=== PATIENT | female | born 1955 | race Caucasian/White ===

== ENCOUNTER 2017-05-06 17:31 | Emergency (ER) | payer SELFPAY ==
[~2017-05-06] VITALS: Ht 157.5 cm; Wt 65.3 kg
[~2017-05-06 17:31] MED LIST: AMIT50TA3 PO; LISI1TAB10 PO; MELO-195 PO; METO-351 PO; NAPR500T PO
--- OUTSIDE RECORDS SUMMARY | 2017-05-06 17:36 | XMS REPORT ---
Author Author AMMON SHELTON Organization [facility] Address [address] [place] [address] Care Team Providers Care Armored Cable Machine Operator Name Role Phone AMMON SHELTON Unavailable PROBLEMS Type Condition ICD9-CM Code [id number] Code Onset Dates Condition Status SNOMED Code Problem Dyspareunia N94.1 Active 03899394 Problem Impetigo L01.00 Active 36683631 Problem Renal failure, unspecified N19 Active 04630317 Problem Sinus arrhythmia I49.8 Active 83162488 Problem Pain in joint, pelvic region and thigh M25.559 Active 839293390 Problem Chronic hepatitis C without hepatic coma B18.2 Active 378232199 Problem 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 Active 039548742 Problem Episodic mood disorder F39 Active 80773717 Problem Primary osteoarthritis of left knee M17.12 Active 334449765 Problem GERD (gastroesophageal reflux disease) K21.9 Active 436868356 Problem Hyposmolality E87.1 Active 829375429 Problem Family history of cardiovascular disease Z82.49 Active 595784275 Problem Generalized osteoarthritis M15.9 Active 511936947 Problem Counseling on substance use and abuse Z71.89 Active 453751274 Problem Decreased libido R68.82 Active 4244064 Problem Syncope and collapse R55 Active 983312766 Problem Essential hypertension, benign I10 Active 6975694 Problem Other malaise R53.81 Active 090089529 Problem Lumbago M54.5 Active 798048908 Problem Postmenopausal atrophic vaginitis N95.2 Active 87048820 ALLERGIES No Information SOCIAL HISTORY Never Assessed PLAN OF CARE VITAL SIGNS MEDICATIONS No Known Medications RESULTS No Results PROCEDURES No Known procedures IMMUNIZATIONS No Known Immunizations MEDICAL (GENERAL) HISTORY Type Description Date Medical History Hepatitis C Medical History Hypertension Medical History Renal failure acute Medical History Insomnia Surgical History partial hysterectomy 1991 Surgical History b union_ left foot unknown Surgical History colposcopy 1990 Hospitalization History surgery Hospitalization History childbirth x 3
--- OUTSIDE RECORDS SUMMARY | 2017-05-06 17:36 | XMS REPORT ---
Author Author APOLLO ANNA Organization [facility] Address [address] [place] [address] Care Team Providers Care Housecleaner Floor Name Role Phone ANNA BUSTILLOS Unavailable PROBLEMS Type Condition ICD9-CM Code IJF69-ML Code Onset Dates Condition Status SNOMED Code Problem Renal failure, unspecified N19 Active 00011932 Problem Generalized osteoarthritis M15.9 Active 165885197 Problem Family history of cardiovascular disease Z82.49 Active 160844701 Problem Sinus arrhythmia I49.8 Active 39137227 Problem Pain in joint, pelvic region and thigh M25.559 Active 425789090 Problem Chronic hepatitis C without hepatic coma B18.2 Active 051026476 Problem 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 Active 929030579 Problem Essential hypertension, benign I10 Active 6581274 Problem Primary osteoarthritis of left knee M17.12 Active 464333557 Problem GERD (gastroesophageal reflux disease) K21.9 Active 808633830 Problem Counseling on substance use and abuse Z71.89 Active 855472709 Problem Decreased libido R68.82 Active 3926369 Problem Hyposmolality E87.1 Active 650496220 Problem Postmenopausal atrophic vaginitis N95.2 Active 85416616 Problem Episodic mood disorder F39 Active 43110987 Problem Impetigo L01.00 Active 60973110 Problem Dyspareunia N94.1 Active 38305889 Problem Other malaise R53.81 Active 605907933 Problem Lumbago M54.5 Active 828162564 Problem Syncope and collapse R55 Active 384004488 ALLERGIES No Known Allergies SOCIAL HISTORY No smoking Hx information available PLAN OF CARE VITAL SIGNS MEDICATIONS Medication Instructions Dosage Frequency Start Date End Date Duration Status Amitriptyline HCl 50 mg Orally Once a day 1 tablet 24h 30 days Active RESULTS No Results PROCEDURES No Known procedures IMMUNIZATIONS No Known Immunizations
--- OUTSIDE RECORDS SUMMARY | 2017-05-06 17:36 | XMS REPORT ---
Author Author APOLLO ANNA Organization [facility] Address [address] [place] [address] Care Team Providers Care Bottle Cleaner Name Role Phone ANNA BUSTILLOS Unavailable PROBLEMS Type Condition ICD9-CM Code [id number] Code Onset Dates Condition Status SNOMED Code Problem Dyspareunia N94.1 Active 65056517 Problem Impetigo L01.00 Active 67821746 Problem Renal failure, unspecified N19 Active 79774341 Problem Sinus arrhythmia I49.8 Active 97312033 Problem Pain in joint, pelvic region and thigh M25.559 Active 051414822 Problem Chronic hepatitis C without hepatic coma B18.2 Active 722461190 Problem 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 Active 682620837 Problem Episodic mood disorder F39 Active 43673973 Problem Primary osteoarthritis of left knee M17.12 Active 736528671 Problem GERD (gastroesophageal reflux disease) K21.9 Active 654426689 Problem Hyposmolality E87.1 Active 074338505 Problem Family history of cardiovascular disease Z82.49 Active 174988886 Problem Generalized osteoarthritis M15.9 Active 173336754 Problem Counseling on substance use and abuse Z71.89 Active 155104519 Problem Decreased libido R68.82 Active 3848966 Problem Syncope and collapse R55 Active 402018596 Problem Essential hypertension, benign I10 Active 9844568 Problem Other malaise R53.81 Active 466087052 Problem Lumbago M54.5 Active 014754708 Problem Postmenopausal atrophic vaginitis N95.2 Active 82001110 ALLERGIES Substance Reaction Event Type Date Status Mobic Hypertension Drug Allergy May, Active Cipro Unknown Drug Allergy May, Active Azithromycin Unknown Drug Allergy May, Active Avelox Unknown Drug Allergy May, Active Meloxicam 15 Mg Tablet HTN, Hyponatremia Non Drug Allergy May, Active SOCIAL HISTORY No smoking Hx information available PLAN OF CARE Activity Details Follow Up 4 Weeks, prn Reason:htn VITAL SIGNS Height 62 in 2016-06-08 Weight 146.9 lbs 2016-06-08 Temperature 98.4 degrees Fahrenheit 2016-06-08 Heart Rate 80 bpm 2016-06-08 Respiratory Rate 16 2016-06-08 BMI 26.87 kg/m2 2016-06-08 Blood pressure systolic 140 mmHg 2016-06-08 Blood pressure diastolic 90 mmHg 2016-06-08 MEDICATIONS Medication Instructions Dosage Frequency Start Date End Date Duration Status Amitriptyline HCl 50 mg Orally Once a day 1 tablet 24h 30 days Active Naprosyn 500 MG Orally every 12 hrs 1 tablet as needed 12h 30 May, 2016 Active Omeprazole 20 MG take 1 capsule 24h 27 Jun, 2014 Active Lisinopril-Hydrochlorothiazide 20-25 MG Orally Once a day 1 tablet 24h Active Toprol XL 25 MG 1 tablet 24h Active RESULTS No Results PROCEDURES Procedure Date Ordered Related Diagnosis Body Site Office Visit, Est Pt., Level 3 Jun 08, 2016 IMMUNIZATIONS No Known Immunizations
--- OUTSIDE RECORDS SUMMARY | 2017-05-06 17:37 | XMS REPORT ---
Author Author APOLLO ANNA Organization [facility] Address [address] [place] [address] Care Team Providers Care Insurance Billing Clerk Name Role Phone MARIAELENA BUSTILLOSNETTE Unavailable PROBLEMS Type Condition ICD9-CM Code [id number] Code Onset Dates Condition Status SNOMED Code Problem Dyspareunia N94.1 Active 86909675 Problem Impetigo L01.00 Active 60791129 Problem Renal failure, unspecified N19 Active 42004812 Problem Sinus arrhythmia I49.8 Active 59196117 Problem Pain in joint, pelvic region and thigh M25.559 Active 011543250 Problem Chronic hepatitis C without hepatic coma B18.2 Active 968703205 Problem 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 Active 469681654 Problem Episodic mood disorder F39 Active 81030047 Problem Primary osteoarthritis of left knee M17.12 Active 221948406 Problem GERD (gastroesophageal reflux disease) K21.9 Active 377090434 Problem Hyposmolality E87.1 Active 827985701 Problem Family history of cardiovascular disease Z82.49 Active 138093167 Problem Generalized osteoarthritis M15.9 Active 488400172 Problem Counseling on substance use and abuse Z71.89 Active 977390748 Problem Decreased libido R68.82 Active 6271764 Problem Syncope and collapse R55 Active 070468679 Problem Essential hypertension, benign I10 Active 8673212 Problem Other malaise R53.81 Active 836572839 Problem Lumbago M54.5 Active 595067519 Problem Postmenopausal atrophic vaginitis N95.2 Active 59533002 ALLERGIES No Information SOCIAL HISTORY Never Assessed PLAN OF CARE VITAL SIGNS MEDICATIONS Medication Instructions Dosage Frequency Start Date End Date Duration Status Amitriptyline HCl 50 MG Orally Once a day 1 tablet 24h 90 days Active Toprol XL 25 MG Orally Once a day 1 tablet 24h 90 days Active RESULTS No Results PROCEDURES No [...]
--- OUTSIDE RECORDS SUMMARY | 2017-05-06 17:37 | XMS REPORT ---
Author Author APOLLO ANNA Organization [facility] Address [address] [place] [address] Care Team Providers Care Cloud Physicist Name Role Phone ALICIA BUSTILLOSE Unavailable PROBLEMS Type Condition ICD9-CM Code [id number] Code Onset Dates Condition Status SNOMED Code Problem Dyspareunia N94.1 Active 99251975 Problem Impetigo L01.00 Active 80350834 Problem Renal failure, unspecified N19 Active 90997274 Problem Sinus arrhythmia I49.8 Active 54197535 Problem Pain in joint, pelvic region and thigh M25.559 Active 968192085 Problem Chronic hepatitis C without hepatic coma B18.2 Active 701386940 Problem 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 Active 857768800 Problem Episodic mood disorder F39 Active 73447515 Problem Primary osteoarthritis of left knee M17.12 Active 451881220 Problem GERD (gastroesophageal reflux disease) K21.9 Active 594956489 Problem Hyposmolality E87.1 Active 441282552 Problem Family history of cardiovascular disease Z82.49 Active 971775415 Problem Generalized osteoarthritis M15.9 Active 582075932 Problem Counseling on substance use and abuse Z71.89 Active 181949452 Problem Decreased libido R68.82 Active 9523123 Problem Syncope and collapse R55 Active 476398917 Problem Essential hypertension, benign I10 Active 6418655 Problem Other malaise R53.81 Active 345253419 Problem Lumbago M54.5 Active 448903608 Problem Postmenopausal atrophic vaginitis N95.2 Active 50087344 ALLERGIES Substance Reaction Event Type Date Status Mobic Hypertension Drug Allergy Aug, Active Cipro Unknown Drug Allergy Aug, Active Azithromycin Unknown Drug Allergy Aug, Active Avelox Unknown Drug Allergy Aug, Active Meloxicam 15 Mg Tablet HTN, Hyponatremia Non Drug Allergy Aug, Active SOCIAL HISTORY Never Assessed PLAN OF CARE Activity Details Follow Up 2 Weeks Reason:uti VITAL SIGNS Height 62 in 2016-08-15 Weight 153 lbs 2016-08-15 Temperature 97.9 degrees Fahrenheit 2016-08-15 Heart Rate 88 bpm 2016-08-15 Respiratory Rate 18 2016-08-15 BMI 27.98 kg/m2 2016-08-15 Blood pressure systolic 150 mmHg 2016-08-15 Blood pressure diastolic 80 mmHg 2016-08-15 MEDICATIONS Medication Instructions Dosage Frequency Start Date End Date Duration Status Omeprazole 20 MG take 1 capsule 24h Jun, Active Macrobid 100 mg Orally every 12 hrs 1 capsule with food 12h Aug, Aug, 10 days Active Lisinopril-Hydrochlorothiazide 20-25 MG Orally Once a day 1 tablet 24h Active Amitriptyline HCl 50 mg Orally Once a day 1 tablet 24h 30 days Active Toprol XL 25 MG 1 tablet 24h Active RESULTS Name Result Date Reference Range UA LONG DIP (IN HOUSE) Lot # [id number] Exp date 07/10/2017 Clarity clear Color yellow Odor none GLU negative LUÍS negative KET negative SG 1.010 BLO negative pH 6.5 Protein negative URO 0.2 NIT positive LEONA negative Lot # Exp date PROCEDURES Procedure Date Ordered Result Body Site URINALYSIS, AUTO, W/O SCOPE August 15, 2016 IMMUNIZATIONS No Known Immunizations MEDICAL (GENERAL) HISTORY Type Description Date Medical History Hepatitis C Medical History Hypertension Medical History Renal failure acute Medical History Insomnia Surgical History partial hysterectomy 1991 Surgical History b union_ left foot unknown Surgical History colposcopy 1990 Hospitalization History surgery Hospitalization History childbirth x 3
--- OUTSIDE RECORDS SUMMARY | 2017-05-06 17:37 | XMS REPORT ---
Author Author AMMON SHELTON Organization [facility] Address [address] [place] [address] Care Team Providers Care Roto Gravure Press Operator Name Role Phone AMMON SHELTON Unavailable PROBLEMS Type Condition ICD9-CM Code CYQ63-[id number] Code Onset Dates Condition Status SNOMED Code Problem Dyspareunia N94.1 Active 04099838 Problem Impetigo L01.00 Active 62041655 Problem Renal failure, unspecified N19 Active 76083410 Problem Sinus arrhythmia I49.8 Active 14054598 Problem Pain in joint, pelvic region and thigh M25.559 Active 757027858 Problem Chronic hepatitis C without hepatic coma B18.2 Active 510920208 Problem 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 Active 527916643 Problem Episodic mood disorder F39 Active 29410759 Problem Primary osteoarthritis of left knee M17.12 Active 932146408 Problem GERD (gastroesophageal reflux disease) K21.9 Active 623932006 Problem Hyposmolality E87.1 Active 961085124 Problem Family history of cardiovascular disease Z82.49 Active 142848908 Problem Generalized osteoarthritis M15.9 Active 558313155 Problem Counseling on substance use and abuse Z71.89 Active 350733133 Problem Decreased libido R68.82 Active 9176514 Problem Syncope and collapse R55 Active 879478122 Problem Essential hypertension, benign I10 Active 2930397 Problem Other malaise R53.81 Active 951525296 Problem Lumbago M54.5 Active 814697978 Problem Postmenopausal atrophic vaginitis N95.2 Active 52811314 ALLERGIES No Information SOCIAL HISTORY Never Assessed [...]
--- OUTSIDE RECORDS SUMMARY | 2017-05-06 17:37 | XMS REPORT ---
Author Author LICHA CORTEZ Organization [employer] Address Unknown Phone Unavailable Care Team Providers Care Coin Dealer Name Role Phone LICHA CORTEZ CP Unavailable Allergies No Known Allergies Problems Problem Type Condition ICD-9 Code Onset Dates Condition Status Problem Acute upper respiratory infections of unspecified site 465.9 Active Problem Pain in joint, pelvic region and thigh 719.45 Active Problem Acute gastritis without mention of hemorrhage 535.00 Active Problem Hyposmolality and/or hyponatremia 276.1 Active Problem Unspecified breast screening V76.10 Active Problem Postmenopausal atrophic vaginitis 627.3 Active Problem Counseling on substance use and abuse V65.42 Active Problem Unspecified renal failure 586 Active Problem Special screening for malignant neoplasms, colon V76.51 Active Problem Dehydration 276.51 Active Problem Decreased libido 799.81 Active Problem Family history of other cardiovascular diseases V17.49 Active Problem Insomnia, unspecified 780.52 Active Problem Generalized osteoarthrosis, unspecified site 715.00 Active Problem Persistent disorder of initiating or maintaining sleep 307.42 Active Problem Chronic hepatitis C without mention of hepatic coma 070.54 Active Problem Dyspareunia 625.0 Active Problem Routine gynecological examination V72.31 Active Problem Diarrhea 787.91 Active Problem Special screening for malignant neoplasms, vagina V76.47 Active Problem Essential hypertension, benign 401.1 Active Problem Encounter for long-term (current) use of other medications V58.69 Active Problem STATE HEP A (ADULT) DX V05.3 Active Problem Acute sinusitis, unspecified 461.9 Active Problem Lumbago 724.2 Active Problem Unspecified episodic mood disorder 296.90 Active Problem Urinary tract infection, site not specified 599.0 Active Problem Need for prophylactic vaccination and inoculation, Influenza V04.81 Active Problem Other malaise and fatigue 780.79 Active Problem Syncope and collapse 780.2 Active Problem Impetigo 684 Active Problem Unspecified viral hepatitis C without hepatic coma 070.70 Active Medications No Known Medications Results No Known Results Summary Purpose [employer] Submission
--- OUTSIDE RECORDS SUMMARY | 2017-05-06 17:37 | XMS REPORT ---
Author AMMON Laboy Organization [employer] Address Unknown Phone Unavailable Care Team Providers Care Banking Representative Name Role Phone AMMON DIAZ CP Unavailable Allergies, Adverse Reactions, Alerts Substance Reaction Event Type Mobic Hypertension Drug Allergy Cipro Info Not Available Drug Allergy Azithromycin Info Not Available Drug Allergy Avelox Info Not Available Drug Allergy Meloxicam 15 Mg Tablet HTN, Hyponatremia Non Drug Allergy Problems Problem Type Condition Code Onset Dates Condition Status Assessment Chronic hepatitis C without hepatic coma B18.2 Active Assessment Encounter for immunization Z23 Active Problem Acute upper respiratory infections of unspecified [...] C without hepatic coma 070.70 Active Medications Medication Code System Code Instructions Start Date End Date Status Dosage Hillary [facility] [address]-98 90-400 MG Orally Once a day May 11, 2015Jun 1 tablet Toprol XL [facility] 02311963244 25 MG TAKE ONE TABLET BY MOUTH IN THE EVENING Lisinopril-Hydrochlorothiazide [facility] [address]-26 20-25 MG Orally Once a day 1 tablet amitriptyline [facility] [address]-73 50 mg Jul 22, 2014 1 tablet by Oral route 1 time per day Omeprazole [facility] [address]-04 20 mg Jul 06, 2014 take 1 capsule by Oral route before a meal every other day Amitriptyline HCl [facility] 88225156833 50 MG TAKE ONE TABLET BY MOUTH DAILY Procedures Procedure Coding System Code Date COMPREHEN METABOLIC PANEL CPT-4 55710 May 11, 2015 PROTHROMBIN TIME CPT-4 95404 May 11, 2015 MANUAL CELL COUNT, EACH CPT-4 93149 May 11, 2015 VENIPUNCT, ROUTINE* CPT-4 06491 May 11, 2015 IMMUNIZATION ADMIN, EACH ADD (please include units) CPT-4 04373 May 11, 2015 HEP B (ADULT) CPT-4 26995 May 11, 2015 Office Visit, Est Pt., Level 4 CPT-4 23454 May 11, 2015 SINGLE IMMUNIZATION ADMIN CPT-4 78375 May 11, 2015 HEP A (ADULT) CPT-4 33183 May 11, 2015 Vital Signs Date/Time: May 11, 2015 Temperature 98.2 F Weight 146.0 lbs Height 62 in BMI 26.70 Index Blood Pressure Diastolic 80 mmHg Blood Pressure Systolic 120 mmHg Cardiac Monitoring Heart Rate 80 bpm Results Name Result Date Reference Range Unit Abnormality Flag CMP ----Calcium, Serum 9.1 20150511 8.7-10.2 mg/dL ----Carbon Dioxide, Total 26 20150511 18-29 mmol/L ----ALT (SGPT) 18 20150511 0-32 IU/L ----Creatinine, Serum 1.08 20150511 0.57-1.00 mg/dL H ----AST (SGOT) 28 20150511 0-40 IU/L ----eGFR If NonAfricn Am 57 00297698 >59 mL/min/1.73 L ----Alkaline Phosphatase, S 84 64560597 39-117 IU/L ----eGFR If Africn Am 65 42953749 >59 mL/min/1.73 ----Bilirubin, Total 0.2 93831428 0.0-1.2 mg/dL ----BUN/Creatinine Ratio 12 20150511 9-23 ----A/G Ratio 1.5 20150511 1.1-2.5 ----Sodium, Serum 129 69106299 134-144 mmol/L L ----Globulin, Total 2.9 79829862 1.5-4.5 g/dL ----Potassium, Serum 4.4 36578583 3.5-5.2 mmol/L ----Glucose, Serum 88 20150511 65-99 mg/dL ----Chloride, Serum 90 14562831 97-108 mmol/L L ----Albumin, Serum 4.3 43913293 3.5-5.5 g/dL ----BUN 13 20150511 6-24 mg/dL ----Protein, Total, Serum 7.2 39080228 6.0-8.5 g/dL CBC w/ MANUAL DIFF ----Basos 0 65340792 % ----MCV 88 12283696 79-97 fL ----Hematocrit 38.8 65979947 34.0-46.6 % ----Eos 1 39327450 % ----MCHC 34.5 07950830 31.5-35.7 g/dL ----Monocytes 3 23647692 % ----MCH 30.2 84148875 26.6-33.0 pg ----Lymphs 29 22374035 % ----Eos (Absolute Value) 0.1 79157659 0.0-0.4 X10E3/uL ----WBC 7.9 77989008 3.4-10.8 x10E3/uL ----Monocytes(Absolute) 0.2 61993616 0.1-0.9 X10E3/uL ----Lymphs (Absolute) 2.3 20150511 0.7-3.1 X10E3/uL ----Hemoglobin 13.4 24100006 11.1-15.9 g/dL ----Neutrophils Absolute 5.3 34909413 1.4-7.0 X10E3/uL ----RBC 4.43 61134395 3.77-5.28 x10E6/uL ----Platelet Comment Note: 20150511 Adequate ----RBC Comment Note: 20150511 Normal ----Neutrophils 67 01993228 % ----Baso(Absolute) 0.0 95818941 0.0-0.2 X10E3/uL ----RDW 13.2 32440638 12.3-15.4 % ----Platelets 348 91883598 150-379 x10E3/uL ROUTINE VENIPUNCTURE INR (IN HOUSE) ----Exp date 20150511 ----NEW COUMADIN DOSE none 20150511 ----Lot # [id number] ----PREVIOUS INR none 20150511 ----CURRENT COUMADIN DOSE none 20150511 ----INR 1.0 20150511 1.10 - 3.30 Immunizations Vaccine Administration Date HEP B (ADULT) May 11, 2015 HEP A (ADULT) May 11, 2015 Summary Purpose [employer] Submission
--- OUTSIDE RECORDS SUMMARY | 2017-05-06 17:37 | XMS REPORT ---
Author Author ALEC MCDONALD [facility] Address [address] [place] [address] Care Team Providers Care Power Saw Operator Name Role Phone ALEC MCDONALD Unavailable PROBLEMS Type Condition ICD9-CM Code YIL31-FD Code Onset Dates Condition Status SNOMED Code Problem Dyspareunia N94.1 Active 89436733 Problem Impetigo L01.00 Active 09012640 Problem Renal failure, unspecified N19 Active 04906150 Problem Sinus arrhythmia I49.8 Active 07596131 Problem Pain in joint, pelvic region and thigh M25.559 Active 530772895 Problem Chronic hepatitis C without hepatic coma B18.2 Active 305532240 Problem 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 Active 328160701 Problem Episodic mood disorder F39 Active 48915114 Problem Primary osteoarthritis of left knee M17.12 Active 878987915 Problem GERD (gastroesophageal reflux disease) K21.9 Active 619377506 Problem Hyposmolality E87.1 Active 239674695 Problem Family history of cardiovascular disease Z82.49 Active 967727076 Problem Generalized osteoarthritis M15.9 Active 730961314 Problem Counseling on substance use and abuse Z71.89 Active 730620097 Problem Decreased libido R68.82 Active 0083831 Problem Syncope and collapse R55 Active 125224250 Problem Essential hypertension, benign I10 Active 9948632 Problem Other malaise R53.81 Active 842664587 Problem Lumbago M54.5 Active 357462570 Problem Postmenopausal atrophic vaginitis N95.2 Active 41064722 ALLERGIES No Information SOCIAL HISTORY Never Assessed PLAN OF CARE VITAL SIGNS MEDICATIONS Medication Instructions Dosage Frequency Start Date End Date Duration Status Lisinopril-Hydrochlorothiazide 20-25 MG Orally Once a day, voucher 1st fill 1 tablet Active RESULTS No Results PROCEDURES No Known [...]
--- OUTSIDE RECORDS SUMMARY | 2017-05-06 17:37 | XMS REPORT ---
Author Author APOLLO ANNA Organization [facility] Address [address] [place] [address] Care Team Providers Care Onsite Health Coach Name Role Phone ALICIA BUSTILLOSE Unavailable PROBLEMS Type Condition ICD9-CM Code LXY48-LP Code Onset Dates Condition Status SNOMED Code Problem Dyspareunia N94.1 Active 22093871 Problem Impetigo L01.00 Active 50735775 Problem Renal failure, unspecified N19 Active 59833293 Problem Sinus arrhythmia I49.8 Active 34200952 Problem Pain in joint, pelvic region and thigh M25.559 Active 982805373 Problem Chronic hepatitis C without hepatic coma B18.2 Active 974950116 Problem 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 Active 837905870 Problem Episodic mood disorder F39 Active 84989119 Problem Primary osteoarthritis of left knee M17.12 Active 882980489 Problem GERD (gastroesophageal reflux disease) K21.9 Active 583041463 Problem Hyposmolality E87.1 Active 988662319 Problem Family history of cardiovascular disease Z82.49 Active 276113885 Problem Generalized osteoarthritis M15.9 Active 884659707 Problem Counseling on substance use and abuse Z71.89 Active 775507445 Problem Decreased libido R68.82 Active 2031852 Problem Syncope and collapse R55 Active 592721666 Problem Essential hypertension, benign I10 Active 1354272 Problem Other malaise R53.81 Active 309040369 Problem Lumbago M54.5 Active 524398425 Problem Postmenopausal atrophic vaginitis N95.2 Active 50964396 ALLERGIES No Information SOCIAL HISTORY Never Assessed PLAN OF CARE VITAL SIGNS MEDICATIONS No Known Medications RESULTS No Results PROCEDURES Procedure Date Ordered Result Body Site HEP C RNA QUANT ([facility]IANCE ONLY) Aug 07, 2016 VENIPUNCT, ROUTINE* Aug 07, 2016 IMMUNIZATIONS No Known Immunizations MEDICAL (GENERAL) HISTORY Type Description Date Medical History Hepatitis C Medical History Hypertension Medical History Renal failure acute Medical History Insomnia Surgical History partial hysterectomy 1992 Surgical History b union_ left foot unknown Surgical History colposcopy 1991 Hospitalization History surgery Hospitalization History childbirth x 3
--- OUTSIDE RECORDS SUMMARY | 2017-05-06 17:37 | XMS REPORT ---
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 Active 937523348 Problem Episodic mood disorder F39 Active 71808642 Problem Primary osteoarthritis of left knee M17.12 Active 198567710 Problem GERD (gastroesophageal reflux disease) K21.9 Active 230249105 Problem Hyposmolality E87.1 Active 509607470 Problem Family history of cardiovascular disease Z82.49 Active 320025633 Problem Generalized osteoarthritis M15.9 Active 350016372 Problem Counseling on substance use and abuse Z71.89 Active 557875678 Problem Decreased libido R68.82 Active 2251093 Problem Syncope and collapse R55 Active 858470280 Problem Essential hypertension, benign I10 Active 6578741 Problem Other malaise R53.81 Active 817455051 Problem Lumbago M54.5 Active 408411425 Problem Postmenopausal atrophic vaginitis N95.2 Active 98875475 ALLERGIES Substance Reaction Event Type Date Status Mobic Hypertension Drug Allergy October, Active Cipro Unknown Drug Allergy October, Active Azithromycin Unknown Drug Allergy October, Active Avelox Unknown Drug Allergy October, Active Meloxicam 15 Mg Tablet HTN, Hyponatremia Non Drug Allergy October, Active SOCIAL HISTORY Never Assessed PLAN OF CARE Activity Details Follow Up 8 weeks Reason: Pending Test HEP C RNA QUANT ([facility] ONLY) VITAL SIGNS Height 62 in 2016-11-07 Weight 146.1 lbs 2016-11-07 Temperature 97.9 degrees Fahrenheit 2016-11-07 Heart Rate 86 bpm 2016-11-07 Respiratory Rate 18 2016-11-07 BMI 26.72 kg/m2 2016-11-07 Blood pressure systolic 118 mmHg 2016-11-07 Blood pressure diastolic 76 mmHg 2016-11-07 MEDICATIONS Medication Instructions Dosage Frequency Start Date End Date Duration Status Amitriptyline HCl 50 mg Orally Once a day 1 tablet 24h 30 Active Omeprazole 20 MG take 1 capsule 24h Jun, Active Toprol XL 25 MG 1 tablet 24h Active Lisinopril-Hydrochlorothiazide 20-25 MG Orally Once a day, voucher 1st fill 1 tablet Active RESULTS Name Result Date Reference Range CBC 2016-11-07 WBC 7.6 3.4-10.8 RBC 3.99 3.77-5.28 Hemoglobin 12.3 11.1-15.9 Hematocrit 36.5 34.0-46.6 MCV 92 79-97 MCH 30.8 26.6-33.0 MCHC 33.7 31.5-35.7 RDW 12.7 12.3-15.4 Platelets 320 150-379 Neutrophils 57 Lymphs 30 Monocytes 9 Eos 3 Basos 1 Immature Cells Neutrophils (Absolute) 4.3 1.4-7.0 Lymphs (Absolute) 2.3 0.7-3.1 Monocytes(Absolute) 0.7 0.1-0.9 Eos (Absolute) 0.2 0.0-0.4 Baso (Absolute) 0.1 0.0-0.2 Immature Granulocytes 0 Immature Grans (Abs) 0.0 0.0-0.1 NR Hematology Comments: CMP 2016-11-07 Glucose, Serum 79 65-99 BUN 13 6-24 Creatinine, Serum 0.87 0.57-1.00 eGFR If NonAfricn Am 73 >59 eGFR If Africn Am 84 >59 BUN/Creatinine Ratio 15 9-23 Sodium, Serum 135 134-144 Potassium, Serum 4.5 3.5-5.2 Chloride, Serum 97 96-106 Carbon Dioxide, Total 23 18-29 Calcium, Serum 9.3 8.7-10.2 Protein, Total, Serum 7.5 6.0-8.5 Albumin, Serum 4.3 3.5-5.5 Globulin, Total 3.2 1.5-4.5 A/G Ratio 1.3 1.2-2.2 Bilirubin, Total 0.2 0.0-1.2 Alkaline Phosphatase, S 61 39-117 AST (SGOT) 15 0-40 ALT (SGPT) 14 0-32 PROCEDURES Procedure Date Ordered Result Body Site EKG, TRACING (IN-HOUSE) 2016-11-07 Sinus arrhythmia COMPLETE CBC W/AUTO DIFF WBC November 07, 2016 HEP C RNA QUANT ([facility] ONLY) November 07, 2016 COMPREHEN METABOLIC PANEL November 07, 2016 ELECTROCARDIOGRAM, TRACING November 07, 2016 VENIPUNCT, ROUTINE* November 07, 2016 IMMUNIZATIONS No Known Immunizations MEDICAL (GENERAL) HISTORY Type Description Date Medical History Hepatitis C Medical History Hypertension Medical History Renal failure acute Medical History Insomnia Surgical History partial hysterectomy 1991 Surgical History b union_ left foot unknown Surgical History colposcopy 1990 Hospitalization History surgery Hospitalization History childbirth x 3
--- OUTSIDE RECORDS SUMMARY | 2017-05-06 17:37 | XMS REPORT ---
Author Author LICHA CORTEZ Organization [employer] Address Unknown Phone Unavailable Care Team Providers Care Whipped Topping Mixer Name Role Phone LICHA CORTEZ CP Unavailable Allergies No Known Allergies Problems Problem Type Condition Code Onset Dates Condition Status Problem Acute [...]
--- OUTSIDE RECORDS SUMMARY | 2017-05-06 17:38 | XMS REPORT ---
Author ALEC Zayas [facility] [employer] Address Unknown Phone Unavailable Care Team Providers Care Bulk Truck Driver Name Role Phone ALEC MCDONALD CP Unavailable Allergies, Adverse Reactions, Alerts Substance Reaction Event Type Mobic Hypertension Drug Allergy Cipro Info Not Available Drug Allergy Azithromycin Info Not Available Drug Allergy Avelox Info Not Available Drug Allergy Meloxicam 15 Mg Tablet HTN, Hyponatremia Non Drug Allergy Problems Problem Type Condition Code Onset Dates Condition Status Assessment Allergic rhinitis, unspecified allergic rhinitis type J30.9 Active Problem Acute upper respiratory infections of [...] Instructions Start Date End Date Status Dosage Xyzal [facility] [address]-99 5 MG Once a day Jul 10, 2014 1 tablet Omeprazole [facility] [address]-01 20 MG Once a day Jul 06, 2014 take 1 capsule Lisinopril-Hydrochlorothiazide [facility] [address]-17 20-25 MG Orally Once a day 1 tablet Amitriptyline HCl [facility] [address]-24 50 MG Once a day 1 tablet Toprol XL [facility] [address]-81 25 MG Once a day 1 tablet Procedures Procedure Coding System Code Date Office Visit, Est Pt., Level 3 CPT-4 34321 May 25, 2015 Vital Signs Date/Time: May 25, 2015 Temperature 98.7 F Weight 144.7 lbs Height 62 in BMI 26.46 Index Blood Pressure Diastolic 80 mmHg Blood Pressure Systolic 130 mmHg Cardiac Monitoring Heart Rate 82 bpm Results No Known Results Summary Purpose [employer] Submission
--- OUTSIDE RECORDS SUMMARY | 2017-05-06 17:38 | XMS REPORT ---
Author ANNA Boogie [facility] [employer] Address Unknown Phone Unavailable Care Team Providers Care Case Management Coordinator Name Role Phone ANNA BUSTILLOS CP Unavailable Allergies, Adverse Reactions, Alerts Substance Reaction Event Type Mobic Hypertension Drug Allergy Cipro Info Not Available Drug Allergy Azithromycin Info Not Available Drug Allergy Avelox Info Not Available Drug Allergy Meloxicam 15 Mg Tablet HTN, Hyponatremia Non Drug Allergy Problems Problem Type Condition Code Onset Dates Condition Status Problem Impetigo L01.00 Active Problem Syncope and collapse R55 Active Problem Other malaise R53.81 Active Problem 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 Active Assessment Essential hypertension, benign I10 Active Problem Chronic hepatitis C B18.2 Active Assessment GERD (gastroesophageal reflux disease) K21.9 Active Problem GERD (gastroesophageal reflux disease) K21.9 Active Problem Family history of cardiovascular disease Z82.49 Active Problem Renal failure, unspecified N19 Active Problem Essential hypertension, benign I10 Active Problem Generalized osteoarthritis M15.9 Active Problem Pain in joint, pelvic region and thigh M25.559 Active Problem Hyposmolality E87.1 Active Assessment 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 Active Assessment Ear congestion H93.8X9 Active Problem Decreased libido R68.82 Active Problem Dyspareunia N94.1 Active Problem Postmenopausal atrophic vaginitis N95.2 Active Problem Lumbago M54.5 Active Problem Counseling on substance use and abuse Z71.89 Active Problem Episodic mood disorder F39 Active Medications Medication Code System Code Instructions Start Date End Date Status Dosage Amitriptyline HCl [facility] [address]-00 50 MG Once a day 1 tablet Omeprazole [facility] [address]-59 20 MG Once a day Jul 06, 2014 take 1 capsule Lisinopril-Hydrochlorothiazide [facility] [address]-61 20-25 MG Orally Once a day 1 tablet Toprol XL [facility] [address]-74 25 MG Once a day 1 tablet Mucinex D [facility] [address]-81 60-600 MG Orally Once a day Jun 27, 2015 Jul 27, 2015 1 tablet as needed Procedures Procedure Coding System Code Date Office Visit, Est Pt., Level 3 CPT-4 07510 Jun 27, 2015 Vital Signs Date/Time: Jun 27, 2015 Temperature 96.1 F Weight 144.3 lbs Height 62 in BMI 26.39 Index Blood Pressure Diastolic 88 mmHg Blood Pressure Systolic 140 mmHg Cardiac Monitoring Heart Rate 88 bpm Results No Known Results Summary Purpose [employer] Submission
--- OUTSIDE RECORDS SUMMARY | 2017-05-06 17:38 | XMS REPORT ---
Author MARY Romero [facility] [employer] Address Unknown Phone Unavailable Care Team Providers Care Balance Staff Inspector Name Role Phone AMRY RAMIREZ CP Unavailable Allergies No Known Allergies Problems [...] Instructions Start Date End Date Status Dosage Toprol XL [facility] [id number] 25 MG TAKE ONE TABLET BY MOUTH IN THE EVENING Results No Known Results Summary Purpose [employer] Submission
--- OUTSIDE RECORDS SUMMARY | 2017-05-06 17:38 | XMS REPORT ---
Author Author AMMON SHELTON Organization [facility] Address [address] [place] [address] Care Team Providers Care Welding Machine Operator Arc Name Role Phone AMMON SHELTON Unavailable PROBLEMS Type Condition ICD9-CM Code [id number] Code Onset Dates Condition Status SNOMED Code Problem Dyspareunia N94.1 Active 12668412 Problem Impetigo L01.00 Active 96720415 Problem Renal failure, unspecified N19 Active 32946801 Problem Sinus arrhythmia I49.8 Active 34065091 Problem Pain in joint, pelvic region and thigh M25.559 Active 820500287 Problem Chronic hepatitis C without hepatic coma B18.2 Active 111340983 Problem 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 Active 694601000 Problem Episodic mood disorder F39 Active 99703987 Problem Primary osteoarthritis of left knee M17.12 Active 727647491 Problem GERD (gastroesophageal reflux disease) K21.9 Active 032996594 Problem Hyposmolality E87.1 Active 336664116 Problem Family history of cardiovascular disease Z82.49 Active 701109951 Problem Generalized osteoarthritis M15.9 Active 807396579 Problem Counseling on substance use and abuse Z71.89 Active 662181082 Problem Decreased libido R68.82 Active 1102029 Problem Syncope and collapse R55 Active 998031139 Problem Essential hypertension, benign I10 Active 5130123 Problem Other malaise R53.81 Active 102640845 Problem Lumbago M54.5 Active 523265974 Problem Postmenopausal atrophic vaginitis N95.2 Active 76869468 ALLERGIES No Information SOCIAL HISTORY Never Assessed [...]
--- OUTSIDE RECORDS SUMMARY | 2017-05-06 17:38 | XMS REPORT ---
Author ANNA Boogie [facility] [employer] Address Unknown Phone Unavailable Care Team Providers Care Public Speaking Professor Name Role Phone ANNA BUSTILLOS CP Unavailable Allergies, Adverse Reactions, Alerts Substance Reaction Event Type Mobic Hypertension Drug Allergy Cipro Info Not Available Drug Allergy Azithromycin Info Not Available Drug Allergy Avelox Info Not Available Drug Allergy Meloxicam 15 Mg Tablet HTN, Hyponatremia Non Drug Allergy Problems Problem Type Condition Code Onset Dates Condition Status Problem Episodic mood disorder F39 Active Problem Other malaise R53.81 Active Problem Impetigo L01.00 Active Problem Chronic hepatitis C B18.2 Active Problem Essential hypertension, benign I10 Active Problem 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 Active Problem Renal failure, unspecified N19 Active Problem Syncope and collapse R55 Active Problem Generalized osteoarthritis M15.9 Active Problem Family history of cardiovascular disease Z82.49 Active Assessment Otitis media H66.90 Active Problem Pain in joint, pelvic region and thigh M25.559 Active Assessment Thyromegaly E04.9 Active Problem Counseling on substance use and abuse Z71.89 Active Problem Decreased libido R68.82 Active Problem Hyposmolality E87.1 Active Problem Dyspareunia N94.1 Active Problem Postmenopausal atrophic vaginitis N95.2 Active Problem Lumbago M54.5 Active Medications Medication Code System Code Instructions Start Date End Date Status Dosage Amitriptyline HCl [facility] [address]-57 50 MG Once a day 1 tablet Amoxicillin [facility] [address]-69 875 MG Orally Twice a day Jun 13, 2015 Jun 23, 2015 1 tablet Lisinopril-Hydrochlorothiazide [facility] [address]-75 20-25 MG Orally Once a day 1 tablet Omeprazole [facility] [address]-27 20 MG Once a day Jul 06, 2014 take 1 capsule Toprol XL [facility] [address]-49 25 MG Once a day 1 tablet PredniSONE [facility] [address]-55 10 MG Orally 2 times a day Jun 13, 2015 Jun 18, 2015 as directed Xyzal [facility] [address]-53 5 MG Once a day Jul 10, 2014 1 tablet Procedures Procedure Coding System Code Date ASSAY THYROID STIM HORMONE CPT-4 71592 Jun 13, 2015 VENIPUNCT, ROUTINE* CPT-4 08223 Jun 13, 2015 COMPLETE CBC W/AUTO DIFF WBC CPT-4 17949 Jun 13, 2015 Office Visit, Est Pt., Level 4 CPT-4 12360 Jun 13, 2015 Vital Signs Date/Time: Jun 13, 2015 Temperature 97.2 F Weight 144.2 lbs Height 62 in BMI 26.37 Index Blood Pressure Diastolic 88 mmHg Blood Pressure Systolic 144 mmHg Cardiac Monitoring Heart Rate 84 bpm Results Name Result Date Reference Range Unit Abnormality Flag CBC ----Lymphs 21 96144065 % ----Neutrophils 71 84156562 % ----Baso (Absolute) 0.1 [id number] 0.0-0.2 x10E3/uL ----Hemoglobin 14.2 08343870 11.1-15.9 g/dL ----Eos (Absolute) 0.1 84316588 0.0-0.4 x10E3/uL ----Hematocrit 41.2 11421594 34.0-46.6 % ----Monocytes(Absolute) 0.5 38910498 0.1-0.9 x10E3/uL ----MCV 88 21060917 79-97 fL ----Lymphs (Absolute) 1.9 46828223 0.7-3.1 x10E3/uL ----MCH 30.4 18700274 26.6-33.0 pg ----Neutrophils (Absolute) 6.3 24033223 1.4-7.0 x10E3/uL ----MCHC 34.5 58992056 31.5-35.7 g/dL ----Immature Granulocytes 0 11454521 % ----Basos 1 80202379 % ----RDW 13.6 72106175 12.3-15.4 % ----Immature Grans (Abs) 0.0 72429909 0.0-0.1 x10E3/uL ----WBC 8.9 63801159 3.4-10.8 x10E3/uL ----Platelets 331 20150613 150-379 x10E3/uL ----Eos 1 64474327 % ----RBC 4.67 34466730 3.77-5.28 x10E6/uL ----Monocytes 6 69965682 % ROUTINE VENIPUNCTURE TSH ----TSH 1.730 20150613 0.450-4.500 uIU/mL Summary Purpose [employer] Submission
--- OUTSIDE RECORDS SUMMARY | 2017-05-06 17:38 | XMS REPORT ---
Author RALF Langston [facility] [employer] Address Unknown Phone Unavailable Care Team Providers Care Business Leader Name Role Phone RALF OCBOS CP Unavailable Allergies, Adverse Reactions, Alerts Substance [...] initiating or maintaining sleep G47.00 Active Problem Chronic hepatitis C B18.2 Active Problem GERD (gastroesophageal reflux disease) K21.9 Active Problem Family history of cardiovascular disease Z82.49 Active Problem Renal failure, unspecified N19 Active Problem Essential hypertension, benign I10 Active Problem Generalized osteoarthritis M15.9 Active Problem Pain in joint, pelvic region and thigh M25.559 Active Problem Hyposmolality E87.1 Active Assessment Acute non-recurrent sinusitis, unspecified location J01.90 Active Assessment Urinary tract infection without hematuria, site unspecified N39.0 Active Problem Decreased libido R68.82 Active Problem Dyspareunia N94.1 Active Problem Postmenopausal atrophic vaginitis N95.2 Active Problem Lumbago M54.5 Active Problem Counseling on substance use and abuse Z71.89 Active Problem Episodic mood disorder F39 Active Medications Medication Code System Code Instructions Start Date End Date Status Dosage Toprol XL [facility] [address]-43 25 MG Once a day 1 tablet Omeprazole [facility] [address]-73 20 MG Once a day Jul 06, 2014 take 1 capsule Lisinopril-Hydrochlorothiazide [facility] [address]-60 20-25 MG Orally Once a day 1 tablet Amitriptyline HCl [facility] [address]-67 50 MG Once a day 1 tablet Augmentin ES-600 [facility] [address]-02 600-42.9 MG/5ML Orally 2 times a day Feb 20, 2016 Mar 01, 2016 5 cc Procedures Procedure Coding System Code Date URINALYSIS, AUTO, W/O SCOPE CPT-4 59142 Feb 20, 2016 Office Visit, Est Pt., Level 3 CPT-4 76957 Feb 20, 2016 Vital Signs Date/Time: Feb 20, 2016 Cardiac Monitoring Heart Rate 84 bpm Weight 142 lbs Height 62 in BMI 25.97 Index Blood Pressure Diastolic 84 mmHg Blood Pressure Systolic 130 mmHg Results Name Result Date Reference Range Unit Abnormality Flag UA LONG DIP (IN HOUSE) ----LEONA 1+ [id number] ----NIT neg 20160220 ----SG 1.010 20160220 ----KET neg 20160220 ----LUÍS neg 20160220 ----GLU neg 20160220 ----Odor neg 20160220 ----pH 6.5 20160220 ----BLO neg [id number] ----URO 0.2 20160220 ----Protein neg 20160220 ----Lot # [id number] ----Exp date 20160220 ----Clarity clear 20160220 ----Color yellow 20160220 Summary Purpose [employer]ClinicalWorks Submission
--- OUTSIDE RECORDS SUMMARY | 2017-05-06 17:39 | XMS REPORT | Continuity of Care Document ---
Author Author [facility] Address Unknown Phone Unavailable Allergies Active Description Code Type Severity Reaction Onset Reported/Identified Relationship to Patient Clinical Status Yes Avelox Drug Allergy N/A N/A 09/12/2011 Yes azithromycin Drug Allergy N/A N/A 09/12/2011 Yes Cipro Drug Allergy N/A N/A 09/12/2011 Yes Avelox Drug Allergy 09/12/2011 Yes azithromycin Drug Allergy 09/12/2011 Yes Cipro Drug Allergy 09/12/2011 Yes azithromycin [id number] Drug Allergy Unknown N/A 07/05/2014 Yes ciprofloxacin [id number] Drug Allergy Unknown N/A 07/05/2014 Yes moxifloxacin [id number] Drug Allergy Unknown N/A 07/05/2014 Medications Problems Date Dx Coded Attending Type Code Diagnosis Diagnosed By 09/12/2011 ALEC MCDONALD APRN 401.1 HYPERTENSION, BENIGN ESSENTIAL 09/12/2011 MATTIE STREETER MD 401.1 HYPERTENSION, BENIGN ESSENTIAL 09/12/2011 MARY RAMIREZ DO 401.1 HYPERTENSION, BENIGN ESSENTIAL 09/12/2011 401.1 HYPERTENSION, BENIGN ESSENTIAL 09/12/2011 401.1 HYPERTENSION, BENIGN ESSENTIAL 09/12/2011 MARY RAMIREZ DO 401.1 HYPERTENSION, BENIGN ESSENTIAL 09/12/2011 ALEC MCDONALD APRN 401.1 HYPERTENSION, BENIGN ESSENTIAL 09/12/2011 ALEC MCDONALD APRN 401.1 HYPERTENSION, BENIGN ESSENTIAL 09/12/2011 ALEC MCDONALD APRN 401.1 HYPERTENSION, BENIGN ESSENTIAL 09/12/2011 ELIZABETH RITTER APRN 401.1 HYPERTENSION, BENIGN ESSENTIAL 09/12/2011 JAK MIXON APRN 401.1 HYPERTENSION, BENIGN ESSENTIAL 09/12/2011 ZHANNA OH APRN 401.1 HYPERTENSION, BENIGN ESSENTIAL 09/12/2011 MARY RAMIREZ DO 401.1 HYPERTENSION, BENIGN ESSENTIAL 09/12/2011 BRITT TALAMANTES PA-C 401.1 HYPERTENSION, BENIGN ESSENTIAL 09/12/2011 RAMIREZ DO, MARY K 401.1 HYPERTENSION, BENIGN ESSENTIAL 09/12/2011 401.1 HYPERTENSION, BENIGN ESSENTIAL 09/25/2011 ALEC MCDONALD APRN 296.90 MOOD DISORDER 09/25/[address]ER MD 296.90 MOOD DISORDER 09/25/2011 RAMIREZ DO, MARY K 296.90 MOOD DISORDER 09/25/2011 296.90 MOOD DISORDER 09/25/2011 296.90 MOOD DISORDER 09/25/2011 RAMIREZ DO, MARY K 296.90 MOOD DISORDER 09/25/2011 ALEC MCDONALD APRN 296.90 MOOD DISORDER 09/25/2011 ALEC MCDONALD APRN 296.90 MOOD DISORDER 09/25/2011 ALEC MCDONALD APRN 296.90 MOOD DISORDER 09/25/2011 ELIZABETH RITTER APRN 296.90 MOOD DISORDER 09/25/2011 JAK MIXON APRN 296.90 MOOD DISORDER 09/25/2011 ZHANNA OH APRN 296.90 MOOD DISORDER 09/25/2011 RAMIREZ DO, MARY K 296.90 MOOD DISORDER 09/25/2011 BRITT TALAMANTES PA-C 296.90 MOOD DISORDER 09/25/2011 RAMIREZ DO, MARY K 296.90 MOOD DISORDER 09/25/2011 296.90 MOOD DISORDER 10/31/2011 ALEC MCDONALD APRN 599.0 URINARY TRACT INFECTION 10/31/[address]REETER MD 599.0 URINARY TRACT INFECTION 10/31/2011 RAMIREZ DO, MARY K 599.0 URINARY TRACT INFECTION 10/31/2011 599.0 URINARY TRACT INFECTION 10/31/2011 599.0 URINARY TRACT INFECTION 10/31/2011 RAMIREZ DO, MARY K 599.0 URINARY TRACT INFECTION 10/31/2011 ALEC MCDONALD APRN 599.0 URINARY TRACT INFECTION 10/31/2011 ALEC MCDONALD APRN 599.0 URINARY TRACT INFECTION 10/31/2011 ALEC MCDONALD APRN 599.0 URINARY TRACT INFECTION 10/31/2011 ELIZABETH RITTER APRN 599.0 URINARY TRACT INFECTION 10/31/2011 JAK MIXON APRN 599.0 URINARY TRACT INFECTION 10/31/2011 ZHANNA OH APRN 599.0 URINARY TRACT INFECTION 10/31/2011 RAMIREZ DO, MARY K 599.0 URINARY TRACT INFECTION 10/31/2011 BRITT TALAMANTES PA-C 599.0 URINARY TRACT INFECTION 10/31/2011 RAMIREZ DO, MARY K 599.0 URINARY TRACT INFECTION 10/31/2011 599.0 URINARY TRACT INFECTION 06/06/2012 MATTIE STREETER MD 465.9 UPPER RESPIRATORY INFECTION 06/06/2012 MATTIE STREETER MD 719.45 joint pain, localized in the hip 06/06/2012 RAMIREZ DO, MARY K 465.9 UPPER RESPIRATORY INFECTION 06/06/2012 RAMIREZ DO, MARY K 719.45 joint pain, localized in the hip 06/06/2012 465.9 UPPER RESPIRATORY INFECTION 06/06/2012 719.45 joint pain, localized in the hip 06/06/2012 465.9 UPPER RESPIRATORY INFECTION 06/06/2012 719.45 joint pain, localized in the hip 06/06/2012 RAMIREZ DO MARY K 465.9 UPPER RESPIRATORY INFECTION 06/06/2012 RAMIREZ CLAUS LYNCHA K 719.45 joint pain, localized in the hip 06/06/2012 HARRY SOARESN, ALEC T 465.9 UPPER RESPIRATORY INFECTION 06/06/2012 HARRY PARRISH ALEC T 719.45 joint pain, localized in the hip 06/06/2012 HARRY PARRISH ALEC T 465.9 UPPER RESPIRATORY INFECTION 06/06/2012 HARRY PARRISH ALEC T 719.45 joint pain, localized in the hip 06/06/2012 HARRY PARRISH ALEC T 465.9 UPPER RESPIRATORY INFECTION 06/06/2012 HARRY PARRISH ALEC T 719.45 joint pain, localized in the hip 06/06/2012 RIYA WHEEL AND CASTER REPAIRER, ELIZABETH A 465.9 UPPER RESPIRATORY INFECTION 06/06/2012 RIYA WHEEL AND CASTER REPAIRER, ELIZABETH A 719.45 joint pain, localized in the hip 06/06/2012 MADMario WHEEL AND CASTER REPAIRER, JAK L 465.9 UPPER RESPIRATORY INFECTION 06/06/2012 MADMario WHEEL AND CASTER REPAIRER, JAK L 719.45 joint pain, localized in the hip 06/06/2012 ADRIANO SOARESN, ZHANNA R 465.9 UPPER RESPIRATORY INFECTION 06/06/2012 ADRIANO PARRISH ZHANNA R 719.45 joint pain, localized in the hip 06/06/2012 JAMES LYNCH MARY K 465.9 UPPER RESPIRATORY INFECTION 06/06/2012 JAMES LYNCHCLAUSA K 719.45 joint pain, localized in the hip 06/06/2012 BRITT TALAMANTES PA-C 465.9 UPPER RESPIRATORY INFECTION 06/06/2012 BRITT TALAMANTES PA-C 719.45 joint pain, localized in the hip 06/06/2012 JAMES LYNCHMARY K 465.9 UPPER RESPIRATORY INFECTION 06/06/2012 JAMES LYNCH MARY K 719.45 joint pain, localized in the hip 06/12/[address]ER MD 461.9 SINUSITIS ACUTE 06/12/2012 JAMES LYNCHMARY K 461.9 SINUSITIS ACUTE 06/12/2012 461.9 SINUSITIS ACUTE 06/12/2012 461.9 SINUSITIS ACUTE 06/12/2012 JAMES MARY LYNCH K 461.9 SINUSITIS ACUTE 06/12/2012 ALEC MCDONALD APRN 461.9 SINUSITIS ACUTE 06/12/2012 ALEC MCDONALD APRN 461.9 SINUSITIS ACUTE 06/12/2012 ALEC MCDONALD APRN 461.9 SINUSITIS ACUTE 06/12/2012 ELIZABETH RITTER APRN A 461.9 SINUSITIS ACUTE 06/12/2012 JAK MIXON APRN 461.9 SINUSITIS ACUTE 06/12/2012 ZHANNA OH APRN 461.9 SINUSITIS ACUTE 06/12/2012 JAMES LYNCHCLAUSA K 461.9 SINUSITIS ACUTE 06/12/2012 BRITT TALAMANTES PA-C 461.9 SINUSITIS ACUTE 06/12/2012 JAMES LYNCHCLAUSA K 461.9 SINUSITIS ACUTE 10/22/2012 684 IMPETIGO 10/22/2012 684 IMPETIGO 10/22/2012 CLAUS RAMIREZ DOA K 684 IMPETIGO 10/22/2012 ALEC MCDONALD APRN 684 IMPETIGO 10/22/2012 ALEC MCDONALD APRN 684 IMPETIGO 10/22/2012 ALEC MCDONALD APRN 684 IMPETIGO 10/22/2012 ELIZABETH RITTER APRN A 684 IMPETIGO 10/22/2012 NIESHA MIXON APRNA L 684 IMPETIGO 10/22/2012 JOHNATHON OH APRNINA R 684 IMPETIGO 10/22/2012 MARY RAMIREZ DO K 684 IMPETIGO 10/22/2012 BRITT TALAMANTES PA-C 684 IMPETIGO 10/22/2012 MARY RAMIREZ DO 684 IMPETIGO 01/10/2013 307.42 PERSISTENT DISORDER OF INITIATING OR MAINTAINING SLEEP 01/10/2013 787.91 DIARRHEA 01/10/2013 RAMIREZ DO MARY K 307.42 PERSISTENT DISORDER OF INITIATING OR MAINTAINING SLEEP 01/10/2013 CLAUS RAMIREZ DOA K 787.91 DIARRHEA 01/10/2013 ALEC MCDONALD APRN 307.42 PERSISTENT DISORDER OF INITIATING OR MAINTAINING SLEEP 01/10/2013 ALEC MCDONALD APRN T 787.91 DIARRHEA 01/10/2013 ALEC MCDONALD APRN 307.42 PERSISTENT DISORDER OF INITIATING OR MAINTAINING SLEEP 01/10/2013 ALEC MCDONALD APRN 787.91 DIARRHEA 01/10/2013 ALEC MCDONALD APRN 307.42 PERSISTENT DISORDER OF INITIATING OR MAINTAINING SLEEP 01/10/2013 ALEC MCDONALD APRN 787.91 DIARRHEA 01/10/2013 ELIZABETH RITTER APRN A 307.42 PERSISTENT DISORDER OF INITIATING OR MAINTAINING SLEEP 01/10/2013 RIYA PARRISH ELIZABETH A 787.91 DIARRHEA 01/10/2013 JAK MIXON APRN L 307.42 PERSISTENT DISORDER OF INITIATING OR MAINTAINING SLEEP 01/10/2013 KATHYA MIXON APRNWNYA L 787.91 DIARRHEA 01/10/2013 ADRIANO PARRISH ZHANNA R 307.42 PERSISTENT DISORDER OF INITIATING OR MAINTAINING SLEEP 01/10/2013 ADRIANO PARRISH ZHANNA R 787.91 DIARRHEA 01/10/2013 MARY RAMIREZ DO K 307.42 PERSISTENT DISORDER OF INITIATING OR MAINTAINING SLEEP 01/10/2013 CLAUS RAMIREZ DOA K 787.91 DIARRHEA 01/10/2013 BRITT TALAMANTES PA-C 307.42 PERSISTENT DISORDER OF INITIATING OR MAINTAINING SLEEP 01/10/2013 BRITT TALAMANTES PA-C 787.91 DIARRHEA 01/10/2013 MARY RAMIREZ DO K 307.42 PERSISTENT DISORDER OF INITIATING OR MAINTAINING SLEEP 01/10/2013 CLAUS RAMIREZ DOA K 787.91 DIARRHEA 04/28/2013 ALEC MCDONALD APRN V04.81 FLU SHOT 04/28/2013 ALEC MCDONALD APRN V04.81 FLU SHOT 04/28/2013 HARRY ALEC PARRISH V04.81 FLU SHOT 04/28/2013 ELIZABETH RITTER APRN A V04.81 FLU SHOT 04/28/2013 JAK MIXON APRN V04.81 FLU SHOT 04/28/2013 JOHNATHON OH APRNINA R V04.81 FLU SHOT 04/28/2013 RAMIREZ DO, MARY K V04.81 FLU SHOT 04/28/2013 BRITT TALAMANTES PA-C V04.81 FLU SHOT 04/28/2013 RAMIREZ DO, MARY K V04.81 FLU SHOT 08/17/2013 ALEC MCDONALD APRN 461.9 SINUSITIS ACUTE 08/17/2013 ELIZABETH RITTER APRN A 461.9 SINUSITIS ACUTE 08/17/2013 JAK MIXON APRN 461.9 SINUSITIS ACUTE 08/17/2013 ZHANNA OH APRN R 461.9 SINUSITIS ACUTE 08/17/2013 MARY RAMIREZ DO K 461.9 SINUSITIS ACUTE 08/17/2013 BRITT TALAMANTES PA-C 461.9 SINUSITIS ACUTE 08/17/2013 RAMIREZ CLAUS LYNCHA K 461.9 SINUSITIS ACUTE 09/01/2013 ELIZABETH RITTER APRN 625.0 DYSPAREUNIA 09/01/2013 ELIZABETH RITTER APRN A 627.3 POSTMENOPAUSAL ATROPHIC VAGINITIS 09/01/2013 ELIZABETH RITTER APRN 799.81 DECREASED LIBIDO 09/01/2013 ELIZABETH RITTER APRN V65.42 COUNSELING - SMOKING CESSATION 09/01/2013 ELIZABETH RITTER APRN V72.31 MECHANICAL METER TESTER EXAM, ROUTINE 09/01/2013 ELIZABETH RITTER APRN V76.10 BREAST CANCER SCREENING 09/01/2013 ELIZABETH RITTER APRN V76.47 VAGINAL PAP SMEAR SCREENING 09/01/2013 ELIZABETH RITTER APRN V76.51 COLON CANCER SCREENING 09/01/2013 JAK MIXON APRN 625.0 DYSPAREUNIA 09/01/2013 JAK MIXON APRN 627.3 POSTMENOPAUSAL ATROPHIC VAGINITIS 09/01/2013 MADL WHEEL AND CASTER REPAIRER, JAK L 799.81 DECREASED LIBIDO 09/01/2013 OSCAR WHEEL AND CASTER REPAIRER, JAK L V65.42 COUNSELING - SMOKING CESSATION 09/01/2013 OSCAR WHEEL AND CASTER REPAIRER, JAK L V72.31 MECHANICAL METER TESTER EXAM, ROUTINE 09/01/2013 OSCAR WHEEL AND CASTER REPAIRER, JAK L V76.10 BREAST CANCER SCREENING 09/01/2013 OSCAR WHEEL AND CASTER REPAIRER, JAK L V76.47 VAGINAL PAP SMEAR SCREENING 09/01/2013 OSCAR WHEEL AND CASTER REPAIRER, JAK L V76.51 COLON CANCER SCREENING 09/01/2013 ADRIANO WHEEL AND CASTER REPAIRER, ZHANNA R 625.0 DYSPAREUNIA 09/01/2013 ADRIANO WHEEL AND CASTER REPAIRER, ZHANNA R 627.3 POSTMENOPAUSAL ATROPHIC VAGINITIS 09/01/2013 ADRIANO WHEEL AND CASTER REPAIRER, ZHANNA R 799.81 DECREASED LIBIDO 09/01/2013 ADRIANO WHEEL AND CASTER REPAIRER, ZHANNA R V65.42 COUNSELING - SMOKING CESSATION 09/01/2013 ADRIANO SOARESN, ZHANNA R V72.31 MECHANICAL METER TESTER EXAM, ROUTINE 09/01/2013 ADRIANO SOARESN, ZHANNA R V76.10 BREAST CANCER SCREENING 09/01/2013 ADRIANO WHEEL AND CASTER REPAIRER, ZHANNA R V76.47 VAGINAL PAP SMEAR SCREENING 09/01/2013 ADRIANO WHEEL AND CASTER REPAIRER, ZHANNA R V76.51 COLON CANCER SCREENING 09/01/2013 CLAUS RAMIREZ DOA K 625.0 DYSPAREUNIA 09/01/2013 JAMES LYNCH MARY K 627.3 POSTMENOPAUSAL ATROPHIC VAGINITIS 09/01/2013 RAMIREZ DO MARY K 799.81 DECREASED LIBIDO 09/01/2013 JAMES LYNCH MARY K V65.42 COUNSELING - SMOKING CESSATION 09/01/2013 RAMIREZ DO MARY K V72.31 MECHANICAL METER TESTER EXAM, ROUTINE 09/01/2013 RAMIREZ DO MARY K V76.10 BREAST CANCER SCREENING 09/01/2013 RAMIREZ DO, MARY K V76.47 VAGINAL PAP SMEAR SCREENING 09/01/2013 JAMES LYNCH MARY K V76.51 COLON CANCER SCREENING 09/01/2013 BRITT TALAMANTES PA-C 625.0 DYSPAREUNIA 09/01/2013 BRITT TALAMANTES PA-C 627.3 POSTMENOPAUSAL ATROPHIC VAGINITIS 09/01/2013 BRITT TALAMANTES PA-C 799.81 DECREASED LIBIDO 09/01/2013 BRITT TALAMANTES PA-C V65.42 COUNSELING - SMOKING CESSATION 09/01/2013 BRITT TALAMANTES PA-C V72.31 MECHANICAL METER TESTER EXAM, ROUTINE 09/01/2013 BRITT TALAMANTES PA-C V76.10 BREAST CANCER SCREENING 09/01/2013 BRITT TALAMANTES PA-C V76.47 VAGINAL PAP SMEAR SCREENING 09/01/2013 BRITT TALAMANTES PA-C V76.51 COLON CANCER SCREENING 09/01/2013 MARY RAMIREZ DO 625.0 DYSPAREUNIA 09/01/2013 MARY RAMIREZ DO 627.3 POSTMENOPAUSAL ATROPHIC VAGINITIS 09/01/2013 MARY RAMIREZ DO K 799.81 DECREASED LIBIDO 09/01/2013 MARY RAMIREZ DO K V65.42 COUNSELING - SMOKING CESSATION 09/01/2013 MARY RAMIREZ DO K V72.31 MECHANICAL METER TESTER EXAM, ROUTINE 09/01/2013 MARY RAMIREZ DO K V76.10 BREAST CANCER SCREENING 09/01/2013 MARY RAMIREZ DO V76.47 VAGINAL PAP SMEAR SCREENING 09/01/2013 MARY RAMIREZ DO V76.51 COLON CANCER SCREENING 10/27/2013 JAK MIXON APRN L 599.0 URINARY TRACT INFECTION 10/27/2013 ZHANNA OH APRN R 599.0 URINARY TRACT INFECTION 10/27/2013 MARY RAMIREZ DO K 599.0 URINARY TRACT INFECTION 10/27/2013 BRITT TALAMANTES PA-C 599.0 URINARY TRACT INFECTION 10/27/2013 MARY RAMIREZ DO 599.0 URINARY TRACT INFECTION 06/22/2014 BRITT TALAMANTES PA-C 070.70 UNSPECIFIED VIRAL HEPATITIS C WITHOUT HEPATIC COMA 06/22/2014 BRITT TALAMANTES PA-C 276.51 DEHYDRATION 06/22/2014 BRITT TALAMANTES PA-C 586 RENAL FAILURE UNSPECIFIED 06/22/2014 BRITT TALAMANTES PA-C 715.00 OSTEOARTHROSIS GENERALIZED INVOLVING UNSPECIFIED SITE 06/22/2014 BRITT TALAMANTES PA-C 780.2 SYNCOPE 06/22/2014 BRITT TALAMANTES PA-C 780.79 OTHER MALAISE AND FATIGUE 06/22/2014 BRITT TALAMANTES PA-C V17.49 FAMILY HISTORY OF OTHER CARDIOVASCULAR DISEASES 06/22/2014 MARY RAMIREZ DO 070.70 UNSPECIFIED VIRAL HEPATITIS C WITHOUT HEPATIC COMA 06/22/2014 MARY RAMIREZ DO K 276.51 DEHYDRATION 06/22/2014 MARY RAMIREZ DO 586 RENAL FAILURE UNSPECIFIED 06/22/2014 MARY RAMIREZ DO 715.00 OSTEOARTHROSIS GENERALIZED INVOLVING UNSPECIFIED SITE 06/22/2014 MARY RAMIREZ DO K 780.2 SYNCOPE 06/22/2014 MARY RAMIREZ DO 780.79 OTHER MALAISE AND FATIGUE 06/22/2014 MARY RAMIREZ DO V17.49 FAMILY HISTORY OF OTHER CARDIOVASCULAR DISEASES 06/28/2014 MARY RAMIREZ DO K 724.2 LUMBAGO 07/06/2014 ALEC OWENS DO Ot 276.1 HYPOSMOLALITY 07/06/2014 AELC OWENS DO Ot 401.9 HYPERTENSION NOS 07/06/2014 ALEC OWENS DO Ot 780.4 DIZZINESS AND GIDDINESS 07/06/2014 ALEC OWENS DO Ot 784.0 HEADACHE 07/06/2014 ELIZABETH RITTER WHEEL AND CASTER REPAIRER Ot V76.12 06/06/2016 ELIZABETH RITTER WHEEL AND CASTER REPAIRER Ot V76.12 OTH SCREEN MAMMO-MALIGN NEOPLASM OF VERONIKA 06/06/2016 MELIALYNDA Beal Ot F17.210 NICOTINE DEPENDENCE, CIGARETTES, UNCOMPL 06/06/2016 LYNDA CÁRDENASP Ot M17.12 UNILATERAL PRIMARY OSTEOARTHRITIS, LEFT 06/06/2016 LYNDA CÁRDENASP Ot M25.462 EFFUSION, LEFT KNEE 06/06/2016 LYNDA CÁRDENAS Ot M25.562 PAIN IN LEFT KNEE 06/12/2016 LYNDA CÁRDENASP Ot F17.210 NICOTINE DEPENDENCE, CIGARETTES, UNCOMPL 06/12/2016 MELIA, LYNDA ON SITE SERVICES SPECIALIST Ot M17.12 UNILATERAL PRIMARY OSTEOARTHRITIS, LEFT 06/12/2016 MELIALYNDA BealP Ot M25.462 EFFUSION, LEFT KNEE 06/12/2016 LYNDA CÁRDENASP Ot M25.562 PAIN IN LEFT KNEE Procedures Code [place] [address] ROUTINE VENIPUNCTURE 05/20/2012 49836 TSH 05/20/2012 97778 CMP 05/20/2012 36102 LIPID PANEL 05/20 [id number] GFR CALC (RESULT ONLY) 05/20/2012 28269 CBC 05/20/2012 04860 XRAY HIP RIGHT UNILATERAL MIN 2 VIEWS 06/13/2012 J1040 DEPO MEDROL 80 MG INJ 09/01/2012 33855 THERAPUTIC INJ SQ/IM 09/01/2012 59214 CULTURE URINE 92266 UA W/ CULTURE IF INDICATED 03/02/2013 23110 ROUTINE VENIPUNCTURE 06/11/2013 3665840 GFR CALC (RESULT ONLY) 06/11/2013 17413 CMP 06/11/2013 16976 TSH 06/11/2013 55334 CBC 06/11/2013 ORTHOPEDI HENDERSON ROXANE 08/17/2013 72422 MAMMOGRAM, SCREENING 09/01/2013 16223 HEMOCCULT 2013 69096 PAP SMEAR 2013 Q0091 PAP SMEAR OBTAIN SMEAR 09/01/2013 19090 UA W/ CULTURE IF INDICATED 10/27/2013 41999 UA LONG DIP 11/17 92404 MAMMOGRAM, SCREENING 11/17/2013 03027 CULTURE URINE 68420 ROUTINE VENIPUNCTURE 06/25/2014 08693 CBC 06/25/2014 7185675 GFR CALC (RESULT ONLY) 06/25/2014 47336 CMP 06/25/2014 55163 LIPID PANEL 06/25 02445 CRP HS (CARDIO) 06/25/2014 61965 EKG, TRACING (IN-HOUSE) 06/25/2014 99832 UA W/ CULTURE IF INDICATED 06/28/2014 Results Encounters ACCT No. Visit Date/Time Discharge Status Pt. Type Provider Facility Loc./Unit Complaint [id number] 07/06/2014 13:27:00 07/06/2014 23: 59:59 CLS Outpatient MARY RAMIREZ DO [id number] 06/28/2014 17:10:00 06/28/2014 23: 59:59 CLS Outpatient MARY RAMIREZ DO [id number] 06/25/2014 08:58:00 06/25/2014 23: 59:59 CLS Outpatient BRITT TALAMANTES PA-C [id number] 05/03/2014 16:54:00 05/03/2014 23: 59:59 CLS Outpatient MARY RAMIREZ DO [id number] 11/17/2013 17:59:00 11/17/2013 23: 59:59 CLS Outpatient ZHANNA OH APRN [id number] 10/27/2013 10:18:00 10/27/2013 23: 59:59 CLS Outpatient JAK MIXON APRN [id number] 09/01/2013 09:57:00 09/01/2013 23: 59:59 CLS Outpatient RIYA PARRISH ELIZABETH Mascorro [id number] 08/17/2013 15:35:00 08/17/2013 23: 59:59 CLS Outpatient ALEC MCDONALD APRN [id number] 06/11/2013 12:57:00 06/11/2013 23: 59:59 CLS Outpatient HARRY WHEEL AND CASTER REPAIRERALEC Yee [id number] 04/28/2013 13:58:00 04/28/2013 23: 59:59 CLS Outpatient HARRY WHEEL AND CASTER REPAIRERALEC Yee [id number] 03/02/2013 13:26:00 03/02/2013 23: 59:59 CLS Outpatient MARY RAMIREZ DO [id number] 09/01/2012 17:40:00 09/01/2012 23: 59:59 CLS Outpatient MARY RAMIREZ DO [id number] 06/12/2012 10:00:00 06/12/2012 23: 59:59 CLS Outpatient MATTIE STREETER MD [id number] 05/20/2012 08:05:00 05/20/2012 23: 59:59 CLS Outpatient ALEC MCDONALD APRN [id number] 10/31/2011 18:37:00 10/31/2011 23:59 :59 CLS Outpatient [id number] 01/10/2013 09:20:00 Document Registration [id number] 10/22/2012 17:24:00 Document Registration [id number] 06/06/2016 13:15:00 2015 16:50:00 DIS Emergency LYNDA CÁRDENAS [facility] ER LEFT KNEE PAIN/SWELLING [id number] 07/05/2014 22:31:00 2014 00:44:00 DIS Emergency ALEC OWENS DO [facility] ER HEADACHE,ELEVATED BLOOD PRESSURE [id number] 02/15/2014 15:33:00 2013 23:59:59 CLS Outpatient ELIZABETH RITTER APRN [facility] RAD SCREENING
[2017-05-06] MEDS ORDERED: LISI40TA (17:46)
--- NOTE | 2017-05-06 17:57 | ED General ---
General Chief Complaint: General Problems/Pain Stated Complaint: L FOOT SWELLING/BP ISSUES Source of Information: Patient Exam Limitations: No Limitations History of Present Illness Time Seen by Provider: 17:56 Initial Comments ER with reports of left foot swelling for 2 days, pain to the left calf for 1 day. She has a history of left knee osteoarthritis and this occasionally swells. She also recently changed from lisinopril/HCTZ to just lisinopril. She finished the lisinopril/HCTZ and took just the lisinopril with today being her first dose. No chest pain or shortness of breath. Timing/Duration: 1-2 Days Severity: Moderate Allergies and Home Medications Allergies Coded Allergies: azithromycin (Verified Allergy, Unknown, 07/05/14) ciprofloxacin (Verified Allergy, Unknown, 07/05/14) moxifloxacin (Verified Allergy, Unknown, 07/05/14) Home Medications Amitriptyline HCl 50 Mg Tablet, 50 MG PO HS, (Reported) Lisinopril 40 Mg Tablet, (Reported) Metoprolol Succinate 25 Mg Tab.er.24h, 25 MG PO HS, (Reported) Naproxen 500 Mg Tablet, 500 MG PO BID, #60 Ref 2 Prescribed by: LYNDA CÁRDENAS on 06/06/16 1611 Constitutional: see HPI EENTM: see HPI Respiratory: no symptoms reported Cardiovascular: no symptoms reported Genitourinary: no symptoms reported Musculoskeletal: see HPI Skin: no symptoms reported Psychiatric/Neurological: No Symptoms Reported Hematologic/Lymphatic: No Symptoms Reported Past Xdyzoib-Bguono-Qbytmh Hx Patient Social History Alcohol Use: Occasionally Uses Alcohol Beverage of Choice: Wine Recreational Drug Use: No Smoking Status: Current Everyday Smoker Type Used: Cigarettes Recent Foreign Travel: No Contact w/Someone Who Travel: No Recent Hopitalizations: No Seasonal Allergies Seasonal Allergies: Yes Surgeries History of Surgeries: Yes Surgeries: Hysterectomy, Orthopedic Respiratory History of Respiratory Disorde: No Cardiovascular History of Cardiac Disorders: Yes Cardiac Disorders: Hypertension Neurological History of Neurological Disord: Yes Neurological Disorders: Vertigo 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 Gastrointestinal History of Gastrointestinal Di: Yes (hep c) Gastrointestinal Disorders: Hepatitis Musculoskeletal History of Musculoskeletal Dis: No ("bad knees") Endocrine History of Endocrine Disorders: No Cancer History of Cancer: Yes Cancer: Cervical Psychosocial History of Psychiatric Problem: Yes Behavioral Health Disorders: Anxiety Integumentary History of Skin or Integumenta: No Blood Transfusions History of Blood Disorders: Yes (HEP C) Adverse Reaction to a Blood Tr: No Physical Exam Vital Signs Vital Sign - Last 12Hours 05/06/17 17:35 Temp 97.9 Pulse 97 Resp 18 B/P (MAP) 196/113 Pulse Ox 100 O2 Delivery Room Air Capillary Refill : General Appearance: No Apparent Distress, WD/WN, Anxious Eyes: Bilateral Eye Normal Inspection, Bilateral Eye PERRL, Bilateral Eye EOMI HEENT: PERRL/EOMI, TMs Normal Neck: Full Range of Motion, Normal Inspection Respiratory: Normal Breath Sounds, No Accessory Muscle Use, No Respiratory Distress Cardiovascular: Regular Rate, Rhythm, Normal Peripheral Pulses Gastrointestinal: Non Tender, Soft Extremity: Normal Capillary Refill, Normal Inspection, Normal Range of Motion, Other (is mild swelling to the dorsal forefoot on the left) Neurologic/Psychiatric: Alert, Oriented x3, No Motor/Sensory Deficits Skin: Normal Color, Warm/Dry Progress/Results/Core Measures Suspected Sepsis SIRS Temperature: Pulse: Respiratory Rate: Laboratory Tests 05/06/17 18:07: White Blood Count 8.2 Blood Pressure / Mean: Laboratory Tests 05/06/17 18:07: Creatinine 0.86, Platelet Count 304, Total Bilirubin 0.2 Results/Orders Lab Results Laboratory Tests Test 05/06/17 18:07 Range/Units White Blood Count 8.2 4.3-11.0 10^3/uL Red Blood Count 3.54 L 4.35-5.85 10^6/uL Hemoglobin 12.0 11.5-16.0 G/DL Hematocrit 33 L 35-52 % Mean Corpuscular Volume 94 80-99 FL Mean Corpuscular Hemoglobin 34 25-34 PG Mean Corpuscular Hemoglobin Concent 36 32-36 G/DL Red Cell Distribution Width 13.2 10.0-14.5 % Platelet Count 304 130-400 10^3/uL Mean Platelet Volume 9.6 7.4-10.4 FL Neutrophils (%) (Auto) 61 42-75 % Lymphocytes (%) (Auto) 27 12-44 % Monocytes (%) (Auto) 8 0-12 % Eosinophils (%) (Auto) 3 0-10 % Basophils (%) (Auto) 1 0-10 % Neutrophils # (Auto) 5.0 1.8-7.8 X 10^3 Lymphocytes # (Auto) 2.3 1.0-4.0 X 10^3 Monocytes # (Auto) 0.7 0.0-1.0 X 10^3 Eosinophils # (Auto) 0.2 0.0-0.3 10^3/uL Basophils # (Auto) 0.0 0.0-0.1 10^3/uL Sodium Level 134 L 135-145 MMOL/L Potassium Level 4.0 3.6-5.0 MMOL/L Chloride Level 102 98-107 MMOL/L Carbon Dioxide Level 23 21-32 MMOL/L Anion Gap 9 5-14 MMOL/L Blood Urea Nitrogen 14 7-18 MG/DL Creatinine 0.86 0.60-1.30 MG/DL Estimat Glomerular Filtration Rate > 60 BUN/Creatinine Ratio 16 Glucose Level 86 70-105 MG/DL Calcium Level 9.2 8.5-10.1 MG/DL Total Bilirubin 0.2 0.1-1.0 MG/DL Aspartate Amino Transf (AST/SGOT) 18 5-34 U/L Alanine Aminotransferase (ALT/SGPT) 11 0-55 U/L Alkaline Phosphatase 56 40-136 U/L B-Type Natriuretic Peptide 207.5 H <100.0 PG/ML Total Protein 7.4 6.4-8.2 GM/DL Albumin 4.0 3.2-4.5 GM/DL My Orders Orders - DONNA QUINTERO APRN Us Venous Lower Ext Lt (05/06/17 17:48) Cbc With Automated Diff (05/06/17 17:48) Comprehensive Metabolic Panel (05/06/17 17:48) BNP (05/06/17 17:48) Foot, Left, 3 Views (05/06/17 17:54) Metoprolol Tartrate (Ir) Tab (Lopressor (05/06/17 18:00) Medications Given in ED Current Medications Medications Dose Ordered Sig/Torri Route Start Time Stop Time Status Last Admin Dose Admin Metoprolol Tartrate 25 mg ONCE ONCE PO 05/06/17 18:00 05/06/17 18:01 DC 05/06/17 18:29 25 MG Vital Signs/I&O Vital Sign - Last 12Hours 05/06/17 05/06/17 17:35 18:13 Temp 97.9 Pulse 97 Resp 18 B/P (MAP) 196/113 168/93 Pulse Ox 100 O2 Delivery Room Air Capillary Refill : Departure Impression Impression: Primary Impression: Arthritis of left foot Additional Impression: Hypertension Disposition: 01 HOME, SELF-CARE Condition: Stable Departure-Patient Inst. Decision time for Depature: 18:56 Referrals: [facility] (PCP/Family) Primary Care Physician Patient Instructions: NO INSTRUCTIONS GIVEN Add. Discharge Instructions: 1. Return to ER for any concerns 2. Follow-up with doctor next week 3. All discharge instructions reviewed with patient and/or family. Voiced understanding. DONNA QUINTERO [employer]ER May 06, 2017 17:57
[2017-05-06] MEDS ORDERED: meTOprolol TARTRATE 25 MG (LOPRESSOR) TABLET PO ONE (18:00)
[2017-05-06 18:13] VITALS: BP 168/93
[2017-05-06 18:16] LABS: BASOPHILS % (AUTO) 1 % (0-10); EOSINOPHILS # (AUTO) 0.2 10^3/uL (0.0-0.3); EOSINOPHILS % (AUTO) 3 % (0-10); LYMPHOCYTES # (AUTO) 2.3 X 10^3 (1.0-4.0); LYMPHOCYTES % (AUTO) 27 % (12-44); MEAN CORPUSCULAR HEMOGLOBIN 34 PG (25-34); MEAN CORPUSCULAR HGB CONC 36 G/DL (32-36); MEAN CORPUSCULAR VOLUME 94 FL (80-99); MEAN PLATELET VOLUME 9.6 FL (7.4-10.4); MONOCYTES # (AUTO) 0.7 X 10^3 (0.0-1.0); MONOCYTES % (AUTO) 8 % (0-12); NEUTROPHILS % (AUTO) 61 % (42-75); PLATELET COUNT 304 10^3/uL (130-400); RED BLOOD COUNT 3.54 10^6/uL (4.35-5.85); RED CELL DISTRIBUTION WIDTH 13.2 % (10.0-14.5); WHITE BLOOD COUNT 8.2 10^3/uL (4.3-11.0)
--- NOTE | 2017-05-06 18:22 | Diagnostic Imaging Report ---
INDICATION: Foot swelling and pain. Three views were obtained. FINDINGS: There are mild degenerative changes in the first metatarsophalangeal joint and midfoot. There is no fracture or dislocation. Soft tissues are unremarkable. IMPRESSION: Degenerative changes in the midfoot and first metatarsophalangeal joint without acute fracture or dislocation. Dictated by: Dictated on workstation # [id number]
[2017-05-06 18:34] LABS: ALANINE AMINOTRANSFERASE 11 U/L (0-55); ANION GAP 9 MMOL/L (5-14); ASPARTATE AMINO TRANSFERASE 18 U/L (5-34); BILIRUBIN,TOTAL 0.2 MG/DL (0.1-1.0); BLOOD UREA NITROGEN 14 MG/DL (7-18); BUN/CREATININE RATIO 16; CALCIUM 9.2 MG/DL (8.5-10.1); CARBON DIOXIDE 23 MMOL/L (21-32); CHLORIDE 102 MMOL/L (98-107); CREATININE SERUM 0.86 MG/DL (0.60-1.30); GFR ESTIMATED > 60; GLUCOSE 86 MG/DL (70-105); SODIUM 134 MMOL/L (135-145); TOTAL PROTEIN 7.4 GM/DL (6.4-8.2)
--- NOTE | 2017-05-06 18:49 | Diagnostic Imaging Report ---
INDICATION: Left calf pain. COMPARISON: None. TECHNIQUE: Duplex, elliott-scale and color-flow imaging of the left lower extremity venous system was performed. FINDINGS: The common femoral vein, superficial femoral vein, profunda femoris, and popliteal veins are normal. These vessels show normal compressibility, color flow, and Doppler augmentation. The deep calf veins, although not very well seen, demonstrate no distinct intraluminal thrombus. IMPRESSION: Negative venous Doppler of the left lower extremity. Dictated by: Dictated on workstation # [id number]
[2017-05-06 19:34] VITALS: BP 168/93
== END 2017-05-06 19:34 | disposition home or self-care (01) ==
LOC: EDUNIT# 17:31 → ER 17:33
DX: M19.072 Primary osteoarthritis, left ankle and foot (principal); I10 Essential (primary) hypertension; F41.9 Anxiety disorder, unspecified; B19.20 Unspecified viral hepatitis C without hepatic coma; F17.210 Nicotine dependence, cigarettes, uncomplicated; Z90.710 Acquired absence of both cervix and uterus
CPT/HCPCS: 36415; 73630; 80053; 83880; 85025; 99283

== ENCOUNTER 2017-06-02 21:37 | Emergency (ER) | payer SELFPAY ==
[~2017-06-02] VITALS: Ht 157.5 cm; Wt 65.3 kg
[~2017-06-02 21:37] MED LIST changes: +LISI40TA; +NAPR-1071 PO; -NAPR500T PO
[2017-06-02] MEDS ORDERED: LISI1TAB10 (21:53)
[2017-06-02] MEDS ORDERED: PANT40TA3 (21:53)
[2017-06-02 23:03] LABS: BASOPHILS # (AUTO) 0.1 10^3/uL (0.0-0.1); BASOPHILS % (AUTO) 0 % (0-10); EOSINOPHILS # (AUTO) 0.1 10^3/uL (0.0-0.3); EOSINOPHILS % (AUTO) 1 % (0-10); LYMPHOCYTES # (AUTO) 1.4 X 10^3 (1.0-4.0); LYMPHOCYTES % (AUTO) 11 % (12-44); MEAN CORPUSCULAR HEMOGLOBIN 33 PG (25-34); MEAN CORPUSCULAR HGB CONC 36 G/DL (32-36); MEAN CORPUSCULAR VOLUME 92 FL (80-99); MEAN PLATELET VOLUME 9.3 FL (7.4-10.4); MONOCYTES # (AUTO) 0.7 X 10^3 (0.0-1.0); MONOCYTES % (AUTO) 5 % (0-12); NEUTROPHILS # (AUTO) 10.9 X 10^3 (1.8-7.8); NEUTROPHILS % (AUTO) 84 % (42-75); PLATELET COUNT 297 10^3/uL (130-400); RED BLOOD COUNT 3.85 10^6/uL (4.35-5.85); RED CELL DISTRIBUTION WIDTH 12.3 % (10.0-14.5); WHITE BLOOD COUNT 13.1 10^3/uL (4.3-11.0)
[2017-06-02 23:23] LABS: ALANINE AMINOTRANSFERASE 12 U/L (0-55); ALBUMIN 4.4 GM/DL (3.2-4.5); ALCOHOL < 10 MG/DL (<10); ANION GAP 14 MMOL/L (5-14); ASPARTATE AMINO TRANSFERASE 22 U/L (5-34); BILIRUBIN,TOTAL 0.3 MG/DL (0.1-1.0); BLOOD UREA NITROGEN 11 MG/DL (7-18); BUN/CREATININE RATIO 13; CARBON DIOXIDE 20 MMOL/L (21-32); CHLORIDE 95 MMOL/L (98-107); CREATININE SERUM 0.84 MG/DL (0.60-1.30); GFR ESTIMATED > 60; GLUCOSE 94 MG/DL (70-105); MAGNESIUM 1.8 MG/DL (1.8-2.4); SODIUM 129 MMOL/L (135-145)
[2017-06-02 23:24] LABS: BILIRUBIN,URINE NEGATIVE (NEGATIVE); KETONES,URINE NEGATIVE (NEGATIVE); LEUKOCYTE ESTERASE ,URINE 1+ (NEGATIVE); NITRITE,URINE NEGATIVE (NEGATIVE); PH,URINE 7 (5-9); PROTEIN,URINE NEGATIVE (NEGATIVE); UROBILINOGEN,URINE NORMAL (NORMAL)
[2017-06-02 23:38] LABS: WBC,URINE RARE /HPF
[2017-06-02 23:42] LABS: TROPONIN I < 0.30 NG/ML (<0.30)
[2017-06-02] MEDS ORDERED: NS IV 1000 ML 1,000 ML IV ONE (23:53)
[2017-06-03] MEDS ORDERED: TETANUS,DIPTH,PERTUSS P/F (BOOSTRIX) 0.5 ML VIAL IM ONE (01:45)
--- NOTE | 2017-06-03 01:51 | ED Fall/Injury ---
General Chief Complaint: Laceration Stated Complaint: HEAD LAC Nursing Triage Note: LACERATION ABOVE LEFT EYE, PT FELL AT HOME. DENIES LOC Source: patient Exam Limitations: no limitations History of Present Illness Initial Comments This 62-year-old woman presents to the emergency room after having a fall in her home. She became very dizzy and suddenly lost consciousness. She has been having episodes of dizziness for a couple of months but none this severe and none resulting in syncope until today. She was preparing things in the home for [employer] and working in the kitchen. She had not yet had anything to eat. She did have 2 glasses of wine. She drinks irregularly but typically has not had trouble with one or 2 glasses of wine. She is uncertain of what she struck her head on. She has a large laceration above the left eye. She arrives by private vehicle. She denies any symptoms of concussion such as confusion, nausea, confusion, etc. She had some neck pain prior to arrival but denies neck pain now. Allergies and Home Medications Allergies Coded Allergies: azithromycin (Verified Allergy, Unknown, 07/05/14) ciprofloxacin (Verified Allergy, Unknown, 07/05/14) moxifloxacin (Verified Allergy, Unknown, 07/05/14) Home Medications Lisinopril/Hydrochlorothiazide 1 Each Tablet, (Reported) Metoprolol Succinate 25 Mg Tab.er.24h, 25 MG PO HS, (Reported) Pantoprazole Sodium 40 Mg Tablet.dr, (Reported) Constitutional: no symptoms reported Eyes: No Symptoms Reported Ears, Nose, Mouth, Throat: no symptoms reported Respiratory: no symptoms reported Cardiovascular: see HPI Gastrointestinal: no symptoms reported Genitourinary: no symptoms reported : No Musculoskeletal: no symptoms reported Skin: see HPI Psychiatric/Neurological: No Symptoms Reported Past Episewx-Imqxkh-Pgkwrt Hx Patient Social History Alcohol Use: Occasionally Uses Number of Drinks Today: Alcohol Beverage of Choice: Wine Recreational Drug Use: No Smoking Status: Current Everyday Smoker Type Used: Cigarettes 2nd Hand Smoke Exposure: Yes Recent Foreign Travel: No Contact w/Someone Who Travel: No Recent Infectious Disease Expo: No Recent Hopitalizations: No Immunizations Up To Date Tetanus Booster (TDap): Unknown Seasonal Allergies Seasonal Allergies: Yes Surgeries History of Surgeries: Yes Surgeries: Hysterectomy, Orthopedic Respiratory History of Respiratory Disorde: No Cardiovascular History of Cardiac Disorders: Yes Cardiac Disorders: Hypertension Neurological History of Neurological Disord: Yes Neurological Disorders: Vertigo Reproductive System : 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, 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 Gastrointestinal History of Gastrointestinal Di: Yes (hep c) Gastrointestinal Disorders: Hepatitis Musculoskeletal History of Musculoskeletal Dis: No ("bad knees") Endocrine History of Endocrine Disorders: No Cancer History of Cancer: Yes Cancer: Cervical Psychosocial History of Psychiatric Problem: Yes Behavioral Health Disorders: Anxiety Integumentary History of Skin or Integumenta: No Blood Transfusions History of Blood Disorders: Yes (HEP C) Adverse Reaction to a Blood Tr: No Physical Exam Vital Signs Vital Sign - Last 12Hours 06/02/17 21:53 Temp 97.7 Pulse 90 Resp 16 B/P (MAP) 179/79 (112) Pulse Ox 100 O2 Delivery Room Air Capillary Refill : Less Than 3 Seconds General Appearance: WD/WN, no apparent distress HEENT: PERRL/EOMI, TMs normal, pharynx normal, other (no dental injury. 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, no motor/sensory deficits, alert, normal mood/affect, oriented x 3 Skin: normal color, warm/dry Marni Coma Score Best Eye Response: (4) Open Spontaneously Best Verbal Response: (5) Oriented Best Motor Response: (6) Obeys Commands [place] Total: 15 Laceration Repair : Wound Location: Face Other Wound Location Above left brow Wound Length (cm): 4 Wound's Depth, Shape: irregular, sub Q Wound Explored: clean Irrigated w/ Saline (ccs): 250 Betadine Prep?: Yes Anesthesia: 1% Lidocaine Volume Anesthetic (ccs): 4 Suture: Prolene Suture Size: 5-0 Number of Sutures: 5 Sterile Dressing Applied?: Yes Progress Skin was cleaned with alcohol. Wound was anesthetized with lidocaine. Betadine prep was applied. Wound was approximated carefully. There were 2 linear components to the laceration with a thin strip of skin in the middle. Care was taken to line up individual lacerations carefully so as to not overlap the mental section of skin. Progress/Results/Core Measures Results/Orders Lab Results Laboratory Tests Test 06/02/17 22:55 06/02/17 23:15 Range/Units White Blood Count 13.1 H 4.3-11.0 10^3/uL Red Blood Count 3.85 L 4.35-5.85 10^6/uL Hemoglobin 12.8 11.5-16.0 G/DL Hematocrit 35 35-52 % Mean Corpuscular Volume 92 80-99 FL Mean Corpuscular Hemoglobin 33 25-34 PG Mean Corpuscular Hemoglobin Concent 36 32-36 G/DL Red Cell Distribution Width 12.3 10.0-14.5 % Platelet Count 297 130-400 10^3/uL Mean Platelet Volume 9.3 7.4-10.4 FL Neutrophils (%) (Auto) 84 H 42-75 % Lymphocytes (%) (Auto) 11 L 12-44 % Monocytes (%) (Auto) 5 0-12 % Eosinophils (%) (Auto) 1 0-10 % Basophils (%) (Auto) 0 0-10 % Neutrophils # (Auto) 10.9 H 1.8-7.8 X 10^3 Lymphocytes # (Auto) 1.4 1.0-4.0 X 10^3 Monocytes # (Auto) 0.7 0.0-1.0 X 10^3 Eosinophils # (Auto) 0.1 0.0-0.3 10^3/uL Basophils # (Auto) 0.1 0.0-0.1 10^3/uL Sodium Level 129 L 135-145 MMOL/L Potassium Level 4.0 3.6-5.0 MMOL/L Chloride Level 95 L 98-107 MMOL/L Carbon Dioxide Level 20 L 21-32 MMOL/L Anion Gap 14 5-14 MMOL/L Blood Urea Nitrogen 11 7-18 MG/DL Creatinine 0.84 0.60-1.30 MG/DL Estimat Glomerular Filtration Rate > 60 BUN/Creatinine Ratio 13 Glucose Level 94 70-105 MG/DL Calcium Level 9.0 8.5-10.1 MG/DL Magnesium Level 1.8 1.8-2.4 MG/DL Total Bilirubin 0.3 0.1-1.0 MG/DL Aspartate Amino Transf (AST/SGOT) 22 5-34 U/L Alanine Aminotransferase (ALT/SGPT) 12 0-55 U/L Alkaline Phosphatase 75 40-136 U/L Troponin I < 0.30 <0.30 NG/ML Total Protein 8.0 6.4-8.2 GM/DL Albumin 4.4 3.2-4.5 GM/DL TSH [place] Testing 1.71 0.35-4.94 UIU/ML Serum Alcohol < 10 <10 MG/DL Urine Color YELLOW Urine Clarity CLEAR Urine pH 7 5-9 Urine Specific [place] 1.005 L 1.016-1.022 Urine Protein NEGATIVE NEGATIVE Urine Glucose (UA) NEGATIVE NEGATIVE Urine Ketones NEGATIVE NEGATIVE Urine Nitrite NEGATIVE NEGATIVE Urine Bilirubin NEGATIVE NEGATIVE Urine Urobilinogen NORMAL NORMAL MG/DL Urine Leukocyte Esterase 1+ H NEGATIVE Urine RBC (Auto) 1+ H NEGATIVE Urine RBC RARE /HPF Urine WBC RARE /HPF Urine Squamous Epithelial Cells 2-5 /HPF Urine Crystals NONE /LPF Urine Bacteria TRACE /HPF Urine Casts NONE /LPF Urine Mucus NEGATIVE /LPF Urine Culture Indicated NO My Orders Orders - BRITT BAZAN MD Alcohol (06/02/17 22:44) Cbc With Automated Diff (06/02/17 22:44) Comprehensive Metabolic Panel (06/02/17 22:44) Magnesium (06/02/17 22:44) Thyroid Analyzer (06/02/17 22:44) Troponin I (06/02/17 22:44) Ua Culture If Indicated (06/02/17 22:44) Saline Lock/Iv-Start (06/02/17 22:44) Ekg Tracing (06/02/17 22:44) Monitor-Rhythm Ecg Trace Only (06/02/17 22:44) Chest 1 View, Ap/Pa Only (06/02/17 22:44) Ct Head/Cervical Spine Wo (06/02/17 22:44) Ns Iv 1000 Ml (Sodium Chloride 0.9%) (06/02/17 23:53) Dipht,Pertuss(Acell),Tet Adult (Boostrix (06/03/17 01:45) Medications Given in ED Vital Signs/I&O Vital Sign - Last 12Hours 06/02/17 06/03/17 21:53 02:05 Temp 97.7 98.0 Pulse 90 88 Resp 16 16 B/P (MAP) 179/79 (112) Pulse Ox 100 99 O2 Delivery Room Air Room Air Blood Pressure Mean: 112 Progress Note : Progress Note Workup was unremarkable except for mild leukocytosis of uncertain etiology. Forehead wound was repaired. Tetanus booster was administered. Patient was dismissed in improved condition and advised to follow closely with her primary care provider. Diagnostic Imaging Diagonstic Imaging: CT Plain Films/CT/US/NM/MRI: c-spine, head Comments CT head and cervical spine viewed by me. Stat rad report reviewed. Final report noted below: NAME: [facility] REC#: [id number] PT STATUS: DEP ER : 1955 PHYSICIAN: BRITT BAZAN MD ADMIT DATE: 06/02/17/ER Signed Date of Exam: 06/02/17 CT HEAD/CERVICAL SPINE WO PROCEDURE: CT head and CT cervical spine without contrast. TECHNIQUE: Multiple contiguous axial images were obtained through the brain and cervical spine without the use of intravenous contrast. Sagittal and coronal reformations through the cervical spine were then performed. INDICATION: Fall. FINDINGS: CT head: There is no intracranial hemorrhage, edema, or mass effect. The brain parenchyma and elliott-white matter differentiation is preserved. No hydrocephalus. No extra-axial fluid collection is seen. The calvarium and the orbits appear grossly unremarkable. The maxillary sinuses demonstrate fluid levels and mucosal thickening in the left maxillary sinus. In the left frontal supraorbital region, there is a small air bubble in the superficial tissues probably related to skin laceration. CT cervical spine: There is reversal of the lordotic curvature in the mid to lower cervical spine. There is 3 mm anterior translation of C3 over C4 vertebral bodies. There is associated ossification of the posterior longitudinal ligament. Severe disc height loss at C5-C6 and C6-C7 with multilevel posterior osteophytes is seen. The facet joints have no significant subluxation or dislocation. There is normal alignment of the lateral masses of C1 and C2 and atlanto-occipital joints. No widening of the predental space. No fracture seen. IMPRESSION: CT head: 1. No intracranial hemorrhage. Superficial left supraorbital scalp air bubble is suggestive of a skin laceration. 3. Maxillary sinuses fluid levels and mucosal thickening may relate to sinusitis. CT cervical spine: Anterior translation of C3 over C4, is probably degenerative with no fracture seen. Advanced disc degenerative changes are seen. This reading agrees with the [facility] report. Dictated by: Dictated on workstation # [id number] Dict: 06/03/17 0600 Trans: 06/03/17 100 Interpreted by: MAYA AYERS MD Electronically signed by: MAYA AYERS MD 06/03/17 1003 Diagonstic Imaging: Xray Plain Films/CT/US/NM/MRI: chest Comments NAME: PEPE [facility]URGESS [facility] REC#: [id number] PT STATUS: DEP ER : 1955 PHYSICIAN: BRITT BAZAN MD ADMIT DATE: 06/02/17/ER Signed Date of Exam: 06/02/17 CHEST 1 VIEW, AP/PA ONLY Patient History: Fall, trauma Technique: Single frontal view of the chest Comparison: None FINDINGS: The lung volumes are normal. No focal consolidation is seen. No large pleural effusion or pneumothorax is seen. The cardiomediastinal silhouette is normal in size and contour. No acute osseous abnormality is seen. There is right convex curvature of the lower thoracic spine. IMPRESSION: No acute pulmonary abnormality seen. Dictated by: Dictated on workstation # [id number] Dict: 06/03/17 06 Trans: 06/03/17 0817 Interpreted by: NEVA ESPINOSA MD Electronically signed by: NEVA ESPINOSA MD 06/03/17 0817 Departure Impression Impression: Primary Impression: Fall on same level Qualified Codes: W18.30XA - Fall on same level, unspecified, initial encounter Additional Impressions: Dizziness Hyponatremia Forehead laceration Qualified Codes: S01.81XA - Laceration without foreign body of other part of head, initial encounter Disposition: 01 HOME, SELF-CARE Condition: Improved Departure-Patient Inst. Decision time for Depature: 01:15 Referrals: [facility] (PCP/Family) Primary Care Physician Patient Instructions: Laceration Repair With Stitches (DC) Add. Discharge Instructions: Keep your wound clean and dry except for normal showering. Avoid scrubbing directly over the sutures. You may address the wound with Band-Aid or other sterile dressing. Antibiotic ointment may be applied to keep the wound from sticking to the dressing. Monitor the wound for signs of infection such as increasing redness, increasing swelling, increasing pain, puslike drainage, or fever. Return to care promptly if he notice these symptoms. Return to have your sutures removed in 5-7 days. Avoid submersion until sutures are removed. To minimize scarring, you may apply moisturizer after sutures are removed. Avoid direct sun exposure and/or apply sunscreen for up to 6 months to minimize discoloration. Follow-up with your primary care provider soon as possible regarding your blood pressure and dizziness. In the meantime, continue with your blood pressure medications. Keep your alcohol consumption to a minimum, preferably no more than one glass of wine per day. Return to the ER if you have worsening symptoms. Eat a well balanced diet and 3 meals per day. Discuss avoiding use of diuretics with your primary care provider. All discharge instructions reviewed with patient and/or family. Voiced understanding. Copy Copies To 1: AMMON SHELTON MD, JOSHUA T MD Jun 03, 2017 01:51
[2017-06-03 02:05] VITALS: BP 174/88
--- NOTE | 2017-06-03 06:15 | Diagnostic Imaging Report ---
Patient History: Fall, trauma Technique: Single frontal view of the chest Comparison: None FINDINGS: The lung volumes are normal. No focal consolidation is seen. No large pleural effusion or pneumothorax is seen. The cardiomediastinal silhouette is normal in size and contour. No acute osseous abnormality is seen. There is right convex curvature of the lower thoracic spine. IMPRESSION: No acute pulmonary abnormality seen. Dictated by: Dictated on workstation # [id number]
--- NOTE | 2017-06-03 06:30 | Diagnostic Imaging Report ---
PROCEDURE: CT head and CT cervical spine without contrast. TECHNIQUE: Multiple contiguous axial images were obtained through the brain and cervical spine without the use of intravenous contrast. Sagittal and coronal reformations through the cervical spine were then performed. INDICATION: Fall. FINDINGS: CT head: There is no intracranial hemorrhage, edema, or mass effect. The brain parenchyma and elliott-white matter differentiation is preserved. No hydrocephalus. No extra-axial fluid collection is seen. The calvarium and the orbits appear grossly unremarkable. The maxillary sinuses demonstrate fluid levels and mucosal thickening in the left maxillary sinus. In the left frontal supraorbital region, there is a small air bubble in the superficial tissues probably related to skin laceration. CT cervical spine: There is reversal of the lordotic curvature in the mid to lower cervical spine. There is 3 mm anterior translation of C3 over C4 vertebral bodies. There is associated ossification of the posterior longitudinal ligament. Severe disc height loss at C5-C6 and C6-C7 with multilevel posterior osteophytes is seen. The facet joints have no significant subluxation or dislocation. There is normal alignment of the lateral masses of C1 and C2 and atlanto-occipital joints. No widening of the predental space. No fracture seen. IMPRESSION: CT head: 1. No intracranial hemorrhage. Superficial left supraorbital scalp air bubble is suggestive of a skin laceration. 3. Maxillary sinuses fluid levels and mucosal thickening may relate to sinusitis. CT cervical spine: Anterior translation of C3 over C4, is probably degenerative with no fracture seen. Advanced disc degenerative changes are seen. This reading agrees with the [facility] report. Dictated by: Dictated on workstation # [id number]
[2017-06-04] MEDS ORDERED: HYDR-87 PO (08:52)
== END 2017-06-03 02:04 | disposition home or self-care (01) ==
LOC: EDUNIT# 21:37 → ER 21:40
DX: S01.81XA Laceration without foreign body of other part of head, initial encounter (principal); R42 Dizziness and giddiness; E87.1 Hypo-osmolality and hyponatremia; I10 Essential (primary) hypertension; F41.9 Anxiety disorder, unspecified; B19.20 Unspecified viral hepatitis C without hepatic coma; F17.210 Nicotine dependence, cigarettes, uncomplicated; Z85.41 Personal history of malignant neoplasm of cervix uteri; Z90.710 Acquired absence of both cervix and uterus; Z23 Encounter for immunization; W19.XXXA Unspecified fall, initial encounter; Y92.009 Unspecified place in unspecified non-institutional (private) residence as the place of occurrence of the external cause
CPT/HCPCS: 12052; 36415; 70450; 71010; 72125; 80053; 80320; 81000; 83735; 84443; 84484; 85025; 90715; 93005; 93041

== ENCOUNTER 2017-06-04 06:35 | Emergency (ER) | payer SELFPAY ==
[~2017-06-04] VITALS: Ht 157.5 cm; Wt 65.3 kg
[~2017-06-04 06:35] MED LIST changes: +LISI1TAB10; +PANT40TA3
--- OUTSIDE RECORDS SUMMARY | 2017-06-04 06:42 | XMS REPORT | Continuity of Care Document ---
Author Author [facility] Address Unknown Phone Unavailable Allergies Active Description Code Type Severity Reaction Onset Reported/Identified Relationship to Patient Clinical Status Yes Avelox Drug Allergy N/A N/A 09/12/2011 Yes azithromycin Drug Allergy N/ A N/A 09/12/2011 Yes Cipro Drug Allergy N/A N/A 09/12/2011 Yes Avelox Drug Allergy 09/12/2011 Yes azithromycin Drug Allergy 09/12/2011 Yes Cipro Drug Allergy 09/12/2011 Yes azithromycin [id number] Drug Allergy Unknown N/A 07/05/2014 Yes ciprofloxacin [id number] Drug Allergy Unknown N/A 07/05/2014 Yes moxifloxacin [id number] Drug Allergy Unknown N/A 07/05/2014 Medications There is no data. Problems Date Dx Coded Attending Type Code Diagnosis Diagnosed By 09/12/2011 ALEC MCDONALD APRN 401.1 HYPERTENSION, BENIGN ESSENTIAL 09/12/2011 FERDINAND GOMEZ, MATTIE 401.1 HYPERTENSION, BENIGN ESSENTIAL 09/12/2011 MARY RAMIREZ [...] MD 599.0 URINARY TRACT INFECTION 10/31/2011 RAMIREZ DO MARY K 599.0 URINARY TRACT INFECTION 10/31/2011 599.0 URINARY TRACT INFECTION 10/31/2011 599.0 URINARY TRACT INFECTION 10/31/2011 RAMIREZ DO MARY K 599.0 URINARY TRACT INFECTION 10/31/2011 ALEC MCDONALD APRN 599.0 URINARY TRACT INFECTION 10/31/2011 ALEC MCDONALD APRN 599.0 URINARY TRACT INFECTION 10/31/2011 ALEC MCDONALD APRN 599.0 URINARY TRACT INFECTION 10/31/2011 ELIZABETH RITTER APRN 599.0 URINARY TRACT INFECTION 10/31/2011 JAK MIXON APRN 599.0 URINARY TRACT INFECTION 10/31/2011 ZHANNA OH APRN 599.0 URINARY TRACT INFECTION 10/31/2011 RAMIREZ DO MARY K 599.0 URINARY TRACT INFECTION 10/31/2011 BRITT TALAMANTES PA-C 599.0 URINARY TRACT INFECTION 10/31/2011 RAMIREZ CLAUS LYNCHA K 599.0 URINARY TRACT INFECTION 10/31/2011 599.0 URINARY TRACT INFECTION 06/06/2012 M[address]IE [address]REETER MD 465.9 UPPER RESPIRATORY INFECTION 06/06/2012 MATTIE STREETER MD 719.45 joint pain, localized in the hip 06/06/2012 RAMIREZ DO MARY K 465.9 UPPER RESPIRATORY INFECTION 06/06/2012 RAMIREZ DO MARY K 719.45 joint pain, localized in the hip 06/06/2012 465.9 UPPER RESPIRATORY INFECTION 06/06/2012 719.45 joint pain, localized in the hip 06/06/2012 465.9 UPPER RESPIRATORY INFECTION 06/06/2012 719.45 joint pain, localized in the hip 06/06/2012 JAMES LYNCH MARY K 465.9 UPPER RESPIRATORY INFECTION 06/06/2012 CLAUS RAMIREZ DOA K 719.45 joint pain, localized in the hip 06/06/2012 HARRY SALES [employer]ENT [employer], ALEC T 465.9 UPPER RESPIRATORY INFECTION 06/06/2012 HARRY SALES AGENT [employer]ING [employer]ICE ALEC T 719.45 joint pain, localized in the hip 06/06/2012 HARRY SOARESN ALEC T 465.9 UPPER RESPIRATORY INFECTION 06/06/2012 HARRY SOARESN ALEC T 719.45 joint pain, localized in the hip 06/06/2012 HARRY SALES AGENT [employer]ING [employer]ICE ALEC T 465.9 UPPER RESPIRATORY INFECTION 06/06/2012 HARRY PARRISH ALEC T 719.45 joint pain, localized in the hip 06/06/2012 RIYA SALES AGENT [employer]ING [employer]ICE, ELIZABETH A 465.9 UPPER RESPIRATORY INFECTION 06/06/2012 RIYA SALES AGENT [employer]ENDING [employer]ICE, ELIZABETH A 719.45 joint pain, localized in the hip 06/06/2012 MADL SALES AGENT [employer]ENDING [employer]ICE, JAK L 465.9 UPPER RESPIRATORY INFECTION 06/06/2012 MADL SALES AGENT [employer]ING [employer]ICE, JAK L 719.45 joint pain, localized in the hip 06/06/2012 ADRIANO SALES AGENT [employer]ENDING SERVICE, ZHANNA R 465.9 UPPER RESPIRATORY INFECTION 06/06/2012 ADRIANO SALES AGENT [employer]ENDING SERVICE ZHANNA R 719.45 joint pain, localized in the hip 06/06/2012 RAMIREZ DO, MARY K 465.9 UPPER RESPIRATORY INFECTION 06/06/2012 JAMES LYNCH, MARY K 719.45 joint pain, localized in the hip 06/06/2012 BRITT TALAMANTES PA-C 465.9 UPPER RESPIRATORY INFECTION 06/06/2012 VINITA MUNSON, BRITT Hernandez 719.45 joint pain, localized in the hip 06/06/2012 JAMES LYNCH, MAYR K 465.9 UPPER RESPIRATORY INFECTION 06/06/2012 JAMES LYNCH, MARY K 719.45 joint pain, localized in the hip 06/12/[address]ER MD 461.9 SINUSITIS ACUTE 06/12/2012 JAMES LYNCH, MARY K 461.9 SINUSITIS ACUTE 06/12/2012 461.9 SINUSITIS ACUTE 06/12/2012 461.9 SINUSITIS ACUTE 06/12/2012 JAMES LYNCHCLAUSA K 461.9 SINUSITIS ACUTE 06/12/2012 ALEC MCDONALD APRN 461.9 SINUSITIS ACUTE 06/12/2012 ALEC MCDONALD APRN 461.9 SINUSITIS ACUTE 06/12/2012 ALEC MCDONALD APRN 461.9 SINUSITIS ACUTE 06/12/2012 ELIZABETH RITTER APRN 461.9 SINUSITIS ACUTE 06/12/2012 JAK MIXON APRN [...] ELIZABETH RITTER APRN A 684 IMPETIGO 10/22/2012 JAK MIXON APRN L 684 IMPETIGO 10/22/2012 JOHNATHON OH APRNINA R 684 IMPETIGO 10/22/2012 MARY RAMIREZ DO K 684 IMPETIGO 10/22/2012 BRITT TALAMANTES PA-C 684 IMPETIGO 10/22/2012 MARY RAMIREZ DO 684 IMPETIGO 01/10/2013 307.42 PERSISTENT DISORDER OF INITIATING OR MAINTAINING SLEEP 01/10/2013 787.91 DIARRHEA 01/10/2013 CLAUS RAMIREZ DOA K 307.42 PERSISTENT DISORDER OF INITIATING OR [...] DISORDER OF INITIATING OR MAINTAINING SLEEP 01/10/2013 JAK MIXON APRN L 787.91 DIARRHEA 01/10/2013 ZHANNA OH APRN R 307.42 PERSISTENT DISORDER OF INITIATING OR MAINTAINING SLEEP 01/10/2013 ZHANNA OH APRN R 787.91 DIARRHEA 01/10/2013 MARY RAMIREZ DO 307.42 PERSISTENT DISORDER OF INITIATING OR MAINTAINING SLEEP 01/10/2013 MARY RAMIREZ DO K 787.91 DIARRHEA 01/10/2013 BRITT TALAMANTES PA-C 307.42 PERSISTENT DISORDER OF INITIATING OR MAINTAINING SLEEP 01/10/2013 BRITT TALAMANTES PA-C 787.91 DIARRHEA 01/10/2013 MARY RAMIREZ DO K 307.42 PERSISTENT DISORDER OF INITIATING OR MAINTAINING SLEEP 01/10/2013 CLAUS RAMIREZ DOA K 787.91 DIARRHEA 04/28/2013 ALEC MCDONALD APRN V04.81 FLU SHOT 04/28/2013 ALEC MCDONALD APRN V04.81 FLU SHOT 04/28/2013 HARRY ALEC PARRISH T V04.81 FLU SHOT 04/28/2013 ELIZABETH RITTER APRN A V04.81 FLU SHOT 04/28/2013 JAK MIXON APRN V04.81 FLU SHOT 04/28/2013 ZHANNA OH APRN R V04.81 FLU SHOT 04/28/2013 RAMIREZ DO, MARY K V04.81 FLU SHOT 04/28/2013 BRITT TALAMANTES PA-C V04.81 FLU SHOT 04/28/2013 RAMIREZ DO, MARY K V04.81 FLU SHOT 08/17/2013 ALEC MCDONALD APRN T 461.9 SINUSITIS ACUTE 08/17/2013 ELIZABETH RITTER APRN A 461.9 SINUSITIS ACUTE 08/17/2013 JAK MIXON APRN 461.9 SINUSITIS ACUTE 08/17/2013 ZHANNA OH APRN R 461.9 SINUSITIS ACUTE 08/17/2013 RAMIREZ DOMARY K 461.9 SINUSITIS ACUTE 08/17/2013 BRITT TALAMANTES PA-C 461.9 SINUSITIS ACUTE 08/17/2013 RAMIREZ DO, MARY K 461.9 SINUSITIS ACUTE 09/01/2013 ELIZABETH RITTER APRN A 625.0 DYSPAREUNIA 09/01/2013 ELIZABETH RITTER APRN 627.3 POSTMENOPAUSAL ATROPHIC VAGINITIS 09/01/2013 ELIZABETH RITTER APRN 799.81 DECREASED LIBIDO 09/01/2013 ELIZABETH RITTER APRN V65.42 COUNSELING - SMOKING CESSATION 09/01/2013 ELIZABETH RITTER APRN V72.31 RN CLINICAL APPEALS EXAM, ROUTINE 09/01/2013 ELIZABETH RITTER APRN V76.10 BREAST CANCER SCREENING 09/01/2013 ELIZABETH RITTER APRN V76.47 VAGINAL PAP SMEAR SCREENING 09/01/2013 ELIZABETH RITTER APRN V76.51 COLON CANCER SCREENING 09/01/2013 JAK MIXON APRN 625.0 DYSPAREUNIA 09/01/2013 JAK MIXON APRN 627.3 POSTMENOPAUSAL ATROPHIC VAGINITIS 09/01/2013 MADL SAL[employer], JAK L 799.81 DECREASED LIBIDO 09/01/2013 OSCAR SALES AGENT [employer]ING SERVICE, JAK L V65.42 COUNSELING - SMOKING CESSATION 09/01/2013 OSCAR SALES [employer]ENT [employer]ING [employer]ICE, JAK L V72.31 RN CLINICAL APPEALS EXAM, ROUTINE 09/01/2013 OSCAR SALES [employer]ENT [employer]ENDING SERVICE, JAK L V76.10 BREAST CANCER SCREENING 09/01/2013 OSCAR SALES AGENT [employer] VENDING SERVICE, JAK L V76.47 VAGINAL PAP SMEAR SCREENING 09/01/2013 OSCAR SALES AGENT [employer] VENDING SERVICE, JAK L V76.51 COLON CANCER SCREENING 09/01/2013 ADRIANO SALES AGENT FO[employer] VENDING SERVICE, ZHANNA R 625.0 DYSPAREUNIA 09/01/2013 ADRIANO SALES AGENT FO[employer] VENDING SERVICE, ZHANNA R 627.3 POSTMENOPAUSAL ATROPHIC VAGINITIS 09/01/2013 ADRIANO SALES AGENT FO[employer] VENDING SERVICE, ZHANNA R 799.81 DECREASED LIBIDO 09/01/2013 ADRIANO SALES AGENT FO[employer] VENDING SERVICE, ZHANNA R V65.42 COUNSELING - SMOKING CESSATION 09/01/2013 ADRIANO SALES AGENT FO[employer] VENDING SERVICE, ZHANNA R V72.31 RN CLINICAL APPEALS EXAM, ROUTINE 09/01/2013 ADRIANO SALES AGENT FO[employer] VENDING SERVICE, ZHANNA R V76.10 BREAST CANCER SCREENING 09/01/2013 ADRIANO SALES AGENT FO[employer] VENDING SERVICE, ZHANNA R V76.47 VAGINAL PAP SMEAR SCREENING 09/01/2013 ADRIANO SALES AGENT FO[employer] VENDING SERVICE, ZHANNA R V76.51 COLON CANCER SCREENING 09/01/2013 RAMIREZ DO MARY K 625.0 DYSPAREUNIA 09/01/2013 RAMIREZ DO, MARY K 627.3 POSTMENOPAUSAL ATROPHIC VAGINITIS 09/01/2013 RAMIREZ DO, MARY K 799.81 DECREASED LIBIDO 09/01/2013 RAMIREZ DO MARY K V65.42 COUNSELING - SMOKING CESSATION 09/01/2013 RAMIREZ DO, MARY K V72.31 RN CLINICAL APPEALS EXAM, ROUTINE 09/01/2013 RAMIREZ DO, MARY K V76.10 BREAST CANCER SCREENING 09/01/2013 RAMIREZ DO, MARY K V76.47 VAGINAL PAP SMEAR SCREENING 09/01/2013 RAMIREZ DO MARY K V76.51 COLON CANCER SCREENING 09/01/2013 BRITT TALAMANTES PA-C 625.0 DYSPAREUNIA 09/01/2013 BRITT TALAMANTES PA-C 627.3 POSTMENOPAUSAL ATROPHIC VAGINITIS 09/01/2013 BRITT TALAMANTES PA-C 799.81 DECREASED LIBIDO 09/01/2013 BRITT TALAMANTES PA-C V65.42 COUNSELING - SMOKING CESSATION 09/01/2013 BRITT TALAMANTES PA-C V72.31 RN CLINICAL APPEALS EXAM, ROUTINE 09/01/2013 BRITT TALAMANTES PA-C V76.10 BREAST CANCER SCREENING 09/01/2013 BRITT TALAMANTES PA-C V76.47 VAGINAL PAP SMEAR SCREENING 09/01/2013 BRITT TALAMANTES PA-C V76.51 COLON CANCER SCREENING 09/01/2013 MARY RAMIREZ DO 625.0 DYSPAREUNIA 09/01/2013 MARY RAMIREZ DO 627.3 POSTMENOPAUSAL ATROPHIC VAGINITIS 09/01/2013 MARY RAMIREZ DO 799.81 DECREASED LIBIDO 09/01/2013 MARY RAMIREZ DO V65.42 COUNSELING - SMOKING CESSATION 09/01/2013 MARY RAMIREZ DO V72.31 RN CLINICAL APPEALS EXAM, ROUTINE 09/01/2013 MARY RAMIREZ DO V76.10 BREAST CANCER SCREENING 09/01/2013 MARY RAMIREZ DO V76.47 VAGINAL PAP SMEAR SCREENING 09/01/2013 MARY RAMIREZ DO V76.51 COLON CANCER SCREENING 10/27/2013 JAK MIXON APRN L 599.0 URINARY TRACT INFECTION 10/27/2013 ZHANNA OH APRN R 599.0 URINARY TRACT INFECTION 10/27/2013 MARY RAMIREZ DO 599.0 URINARY TRACT INFECTION 10/27/2013 BRITT TALAMANTES [...] PA-C 780.79 OTHER MALAISE AND FATIGUE 06/22/2014 TALAMANTES PA-C, BRITT M V17.49 FAMILY HISTORY OF OTHER CARDIOVASCULAR DISEASES 06/22/2014 RAMIREZ MARY LYNCH K 070.70 UNSPECIFIED VIRAL HEPATITIS C WITHOUT HEPATIC COMA 06/22/2014 MARY RAMIREZ DO K 276.51 DEHYDRATION 06/22/2014 MARY RAMIREZ DO K 586 RENAL FAILURE UNSPECIFIED 06/22/2014 RAMIREZ MARY LYNCH K 715.00 OSTEOARTHROSIS GENERALIZED INVOLVING UNSPECIFIED SITE 06/22/2014 MARY RAMIREZ DO K 780.2 SYNCOPE 06/22/2014 MARY RAMIREZ DO K 780.79 OTHER MALAISE AND FATIGUE 06/22/2014 RAMIREZ MARY LYNCH K V17.49 FAMILY HISTORY OF OTHER CARDIOVASCULAR DISEASES 06/28/2014 MARY RAMIREZ DO K 724.2 LUMBAGO 07/06/2014 ALEC OWENS DO Ot 276.1 HYPOSMOLALITY 07/06/2014 ALEC OWENS DO Ot 401.9 HYPERTENSION NOS 07/06/2014 ALEC OWENS DO Ot 780.4 DIZZINESS AND GIDDINESS 07/06/2014 ALEC OWENS DO Ot 784.0 HEADACHE 07/06/2014 ELIZABETH RITTER SALES AGENT [employer]ENDING SERVICE Ot V76.12 06/06/2016 ELIZABETH RITTER SALES AGENT [employer] VENDING SERVICE Ot V76.12 OTH SCREEN MAMMO-MALIGN NEOPLASM OF VERONIKA 06/06/2016 MELIA, LYNDA OFFICE HELPER CLERICAL Ot F17.210 NICOTINE DEPENDENCE, CIGARETTES, UNCOMPL 06/06/2016 MELIA, LYNDA OFFICE HELPER CLERICAL Ot M17.12 UNILATERAL PRIMARY OSTEOARTHRITIS, LEFT 06/06/2016 MELIA, LYNDA OFFICE HELPER CLERICAL Ot M25.462 EFFUSION, LEFT KNEE 06/06/2016 MELIA, LYNDA OFFICE HELPER CLERICAL Ot M25.562 PAIN IN LEFT KNEE 06/12/2016 MELIA, LYNDA OFFICE HELPER CLERICAL Ot F17.210 NICOTINE DEPENDENCE, CIGARETTES, UNCOMPL 06/12/2016 MELIA, LYNDA OFFICE HELPER CLERICAL Ot M17.12 UNILATERAL PRIMARY OSTEOARTHRITIS, LEFT 06/12/2016 MELIA, LYNDA OFFICE HELPER CLERICAL Ot M25.462 EFFUSION, LEFT KNEE 06/12/2016 MELIA, LYNDA OFFICE HELPER CLERICAL Ot M25.562 PAIN IN LEFT KNEE 05/06/2017 ELIZABETH RITTER SALES AGENT [employer]ENDING SERVICE Ot V76.12 OTH SCREEN MAMMO-MALIGN NEOPLASM OF VERONIKA 05/06/2017 DONNA QUINTERO SALES AGENT [employer] VENDING SERVICE Ot B19.20 UNSPECIFIED VIRAL HEPATITIS C WITHOUT HE 05/06/2017 DONNA QUINTERO SALES AGENT [employer]ENDING SERVICE Ot F17.210 NICOTINE DEPENDENCE, CIGARETTES, UNCOMPL 05/06/2017 DONNA QUINTERO SALES AGENT [employer] VENDING SERVICE Ot F41.9 ANXIETY DISORDER, UNSPECIFIED 05/06/2017 DONNA QUINTERO SALES AGENT [employer] VENDING SERVICE Ot I10 ESSENTIAL (PRIMARY) HYPERTENSION 05/06/2017 DONNA QUINTERO SALES AGENT [employer] VENDING SERVICE Ot M19.072 PRIMARY OSTEOARTHRITIS, LEFT ANKLE AND F 05/06/2017 DONNA QUINTERO SALES AGENT [employer] VENDING SERVICE Ot M79.89 OTHER SPECIFIED SOFT TISSUE DISORDERS 05/06/2017 DONNA QUINTERO SALES AGENT [employer] VENDING SERVICE Ot Z90.710 ACQUIRED ABSENCE OF BOTH CERVIX AND UTER 05/06/2017 ELIZABETH RITTER SALES AGENT [employer] VENDING SERVICE Ot V76.12 OTH SCREEN MAMMO-MALIGN NEOPLASM OF VERONIKA Procedures Code Description [place] [address] ROUTINE VENIPUNCTURE 05/20/2012 60334 TSH 05/20/2012 00647 CMP 05/20/2012 19683 LIPID PANEL 05/20/2012 9111226 GFR CALC (RESULT ONLY) 05/20/2012 37255 CBC 05/20/2012 36569 XRAY HIP RIGHT UNILATERAL MIN 2 VIEWS 06/13/2012 J1040 DEPO MEDROL 80 MG INJ 09/01/2012 07750 THERAPUTIC INJ SQ/IM 09/01/2012 53010 CULTURE URINE 03/02/2013 70790 UA W/ CULTURE IF INDICATED 03/02/2013 44319 ROUTINE VENIPUNCTURE 06/11/2013 2713804 GFR CALC (RESULT ONLY) 06/11/2013 60199 CMP 06/11/2013 78310 TSH 06/11/2013 98846 CBC 06/11/2013 ROXANE AQUINO 08/17/2013 65434 MAMMOGRAM, SCREENING 09/01/2013 84787 HEMOCCULT 09/01/2013 43249 PAP SMEAR 09/01/2013 Q0091 PAP SMEAR OBTAIN SMEAR 09/01/2013 41780 UA W/ CULTURE IF INDICATED 10/27/2013 36842 UA LONG DIP 11/17/2013 12344 MAMMOGRAM, SCREENING 11/17/2013 55118 CULTURE URINE 11/20/2013 79005 ROUTINE VENIPUNCTURE 06/25/2014 11002 CBC 06/25/2014 6010240 GFR CALC (RESULT ONLY) 06/25/2014 31318 CMP 06/25/2014 06566 LIPID PANEL 06/25/2014 58347 CRP HS (CARDIO) 06/25/2014 56997 EKG, TRACING (IN-HOUSE) 06/25/2014 21444 UA W/ CULTURE IF INDICATED 06/28/2014 Results Test Result Range Complete blood count (CBC) with automated white blood cell (WBC) differential - 05/06/17 18:07 Blood leukocytes automated count (number/volume) 8.2 10*3/uL 4.3-11.0 Blood erythrocytes automated count (number/volume) 3.54 10*6/uL 4.35-5.85 Venous blood hemoglobin measurement (mass/volume) 12.0 g/dL 11.5-16.0 Blood hematocrit (volume fraction) 33 % 35-52 Automated erythrocyte mean corpuscular volume 94 [foz_us] 80-99 Automated erythrocyte mean corpuscular hemoglobin (mass per erythrocyte) 34 pg 25-34 Automated erythrocyte mean corpuscular hemoglobin concentration measurement ( mass/volume) 36 g/dL 32-36 Automated erythrocyte distribution width ratio 13.2 % 10.0-14.5 Automated blood platelet count (count/volume) 304 10*3/uL 130-400 Automated blood platelet mean volume measurement 9.6 [foz_us] 7.4-10.4 Automated blood neutrophils/100 leukocytes 61 % 42-75 Automated blood lymphocytes/100 leukocytes 27 % 12-44 Blood monocytes/100 leukocytes 8 % 0-12 Automated blood eosinophils/100 leukocytes 3 % 0-10 Automated blood basophils/100 leukocytes 1 % 0-10 Blood neutrophils automated count (number/volume) 5.0 10*3 1.8-7.8 Blood lymphocytes automated count (number/volume) 2.3 10*3 1.0-4.0 Blood monocytes automated count (number/volume) 0.7 10*3 0.0-1.0 Automated eosinophil count 0.2 10*3/uL 0.0-0.3 Automated blood basophil count (count/volume) 0.0 10*3/uL 0.0-0.1 Comprehensive metabolic panel - 05/06/17 18:07 Serum or plasma sodium measurement (moles/volume) 134 mmol/L 135-145 Serum or plasma potassium measurement (moles/volume) 4.0 mmol/L 3.6-5.0 Serum or plasma chloride measurement (moles/volume) 102 mmol/L 98-107 Carbon dioxide 23 mmol/L 21-32 Serum or plasma anion gap determination (moles/volume) 9 mmol/L 5-14 Serum or plasma urea nitrogen measurement (mass/volume) 14 mg/dL 7-18 Serum or plasma creatinine measurement (mass/volume) 0.86 mg/dL 0.60-1.30 Serum or plasma urea nitrogen/creatinine mass ratio 16 NRG Serum or plasma creatinine measurement with calculation of estimated glomerular filtration rate > NRG Serum or plasma glucose measurement (mass/volume) 86 mg/dL 70-105 Serum or plasma calcium measurement (mass/volume) 9.2 mg/dL 8.5-10.1 Serum or plasma total bilirubin measurement (mass/volume) 0.2 mg/dL 0.1-1.0 Serum or plasma alkaline phosphatase measurement (enzymatic activity/volume) 56 U/L 40-136 Serum or plasma aspartate aminotransferase measurement (enzymatic activity/ volume) 18 U/L 5-34 Serum or plasma alanine aminotransferase measurement (enzymatic activity/volume ) 11 U/L 0-55 Serum or plasma protein measurement (mass/volume) 7.4 g/dL 6.4-8.2 Serum or plasma albumin measurement (mass/volume) 4.0 g/dL 3.2-4.5 Serum or plasma lithium measurement (moles/volume) - 05/06/17 18:07 BNP level 207.5 pg/mL <100.0 Complete blood count (CBC) with automated white blood cell (WBC) differential - 06/02/17 22:55 Blood leukocytes automated count (number/volume) 13.1 10*3/uL 4.3-11.0 Blood erythrocytes automated count (number/volume) 3.85 10*6/uL 4.35-5.85 Venous blood hemoglobin measurement (mass/volume) 12.8 g/dL 11.5-16.0 Blood hematocrit (volume fraction) 35 % 35-52 Automated erythrocyte mean corpuscular volume 92 [foz_us] 80-99 Automated erythrocyte mean corpuscular hemoglobin (mass per erythrocyte) 33 pg 25-34 Automated erythrocyte mean corpuscular hemoglobin concentration measurement ( mass/volume) 36 g/dL 32-36 Automated erythrocyte distribution width ratio 12.3 % 10.0-14.5 Automated blood platelet count (count/volume) 297 10*3/uL 130-400 Automated blood platelet mean volume measurement 9.3 [foz_us] 7.4-10.4 Automated blood neutrophils/100 leukocytes 84 % 42-75 Automated blood lymphocytes/100 leukocytes 11 % 12-44 Blood monocytes/100 leukocytes 5 % 0-12 Automated blood eosinophils/100 leukocytes 1 % 0-10 Automated blood basophils/100 leukocytes 0 % 0-10 Blood neutrophils automated count (number/volume) 10.9 10*3 1.8-7.8 Blood lymphocytes automated count (number/volume) 1.4 10*3 1.0-4.0 Blood monocytes automated count (number/volume) 0.7 10*3 0.0-1.0 Automated eosinophil count 0.1 10*3/uL 0.0-0.3 Automated blood basophil count (count/volume) 0.1 10*3/uL 0.0-0.1 Comprehensive metabolic panel - 06/02/17 22:55 Serum or plasma sodium measurement (moles/volume) 129 mmol/L 135-145 Serum or plasma potassium measurement (moles/volume) 4.0 mmol/L 3.6-5.0 Serum or plasma chloride measurement (moles/volume) 95 mmol/L 98-107 Carbon dioxide 20 mmol/L 21-32 Serum or plasma anion gap determination (moles/volume) 14 mmol/L 5-14 Serum or plasma urea nitrogen measurement (mass/volume) 11 mg/dL 7-18 Serum or plasma creatinine measurement (mass/volume) 0.84 mg/dL 0.60-1.30 Serum or plasma urea nitrogen/creatinine mass ratio 13 NRG Serum or plasma creatinine measurement with calculation of estimated glomerular filtration rate > NRG Serum or plasma glucose measurement (mass/volume) 94 mg/dL 70-105 Serum or plasma calcium measurement (mass/volume) 9.0 mg/dL 8.5-10.1 Serum or plasma total bilirubin measurement (mass/volume) 0.3 mg/dL 0.1-1.0 Serum or plasma alkaline phosphatase measurement (enzymatic activity/volume) 75 U/L 40-136 Serum or plasma aspartate aminotransferase measurement (enzymatic activity/ volume) 22 U/L 5-34 Serum or plasma alanine aminotransferase measurement (enzymatic activity/volume ) 12 U/L 0-55 Serum or plasma protein measurement (mass/volume) 8.0 g/dL 6.4-8.2 Serum or plasma albumin measurement (mass/volume) 4.4 g/dL 3.2-4.5 Magnesium - 06/02/17 22:55 Magnesium 1.8 mg/dL 1.8-2.4 Serum or plasma troponin i.cardiac measurement (mass/volume) - 06/02/17 22:55 Serum or plasma troponin i.cardiac measurement (mass/volume) < ng/ mL <0.30 Serum or plasma thyrotropin measurement by detection limit <=0.05 miu/l (units/ volume) - 06/02/17 22:55 Serum or plasma thyrotropin measurement by detection limit <=0.05 miu/l (units/ volume) 1.71 u[iU]/mL 0.35-4.94 Serum or plasma ethanol measurement (mass/volume) - 06/02/17 22:55 Serum or plasma ethanol measurement (mass/volume) < mg/dL <10 Complete urinalysis with reflex to culture - 06/02/17 23:15 Urine color determination YELLOW NRG Urine clarity determination CLEAR NRG Urine pH measurement by test strip 7 5-9 Specific gravity of urine by test strip 1.005 1.016- 1.022 Urine protein assay by test strip, semi-quantitative NEGATIVE NEGATIVE Urine glucose detection by automated test strip NEGATIVE NEGATIVE Erythrocytes detection in urine sediment by light microscopy 1+ NEGATIVE Urine ketones detection by automated test strip NEGATIVE NEGATIVE Urine nitrite detection by test strip NEGATIVE NEGATIVE Urine total bilirubin detection by test strip NEGATIVE NEGATIVE Urine urobilinogen measurement by automated test strip (mass/volume) NORMAL NORMAL Urine leukocyte esterase detection by dipstick 1+ NEGATIVE Automated urine sediment erythrocyte count by microscopy (number/high power field) RARE NRG Automated urine sediment leukocyte count by microscopy (number/high power field ) RARE NRG Bacteria detection in urine sediment by light microscopy TRACE NRG Squamous epithelial cells detection in urine sediment by light microscopy 2-5 NRG Crystals detection in urine sediment by light microscopy NONE NRG Casts detection in urine sediment by light microscopy NONE NRG Mucus detection in urine sediment by light microscopy NEGATIVE NRG Complete urinalysis with reflex to culture NO NRG Encounters ACCT No. Visit Date/Time Discharge Status Pt. Type Provider Facility Loc./Unit Complaint [id number] 07/06/2014 13:27:00 07/06/2014 23:59:59 [facility] Outpatient MARY RAMIREZ DO [id number] 06/28/2014 17:10:00 06/28/2014 23:59:59 [facility] Outpatient MARY RAMIREZ DO [id number] 06/25/2014 08:58:00 06/25/2014 23:59:59 [facility] Outpatient BRITT TALAMANTES PA-C [id number] 05/03/2014 16:54:00 05/03/2014 23:59:59 [facility] Outpatient MARY RAMIREZ DO [place] [id number] 11/17/2013 17:59:00 11/17/2013 23:59:59 [facility] Outpatient ADRIANO PARRISH ZHANNA Zaragoza [id number] 10/27/2013 10:18:00 10/27/2013 23:59:59 [facility] Outpatient APURVA SHIVANIJAK Mario [id number] 09/01/2013 09:57:00 09/01/2013 23:59:59 [facility] Outpatient RIYA SHIVANI ELIZABETH A [id number] 08/17/2013 15:35:00 08/17/2013 23:59:59 [facility] Outpatient ALEC MCDONALD APRN [id number] 06/11/2013 12:57:00 06/11/2013 23:59:59 [facility] Outpatient ALEC MCDONALD APRN [id number] 04/28/2013 13:58:00 04/28/2013 23:59:59 [facility] Outpatient ALEC MCDONALD APRN [id number] 03/02/2013 13:26:00 03/02/2013 23:59:59 [facility] Outpatient MARY RAMIREZ DO [place] [id number] 09/01/2012 17:40:00 09/01/2012 23:59:59 [facility] Outpatient MARY RAMIREZ DO [place] [id number] 06/12/2012 10:00:00 06/12/2012 23:59:59 CLS Outpatient MATTIE STREETER MD [id number] 05/20/2012 08:05:00 05/20/2012 23:59:59 CLS Outpatient ALEC MCDONALD APRN [id number] 10/31/2011 18:37:00 10/31/2011 23:59:59 CLS Outpatient [id number] 01/10/2013 09:20:00 Document Registration [id number] 10/22/2012 17:24:00 Document Registration [id number] 05/06/2017 17:33:00 05/06/2017 19:34:00 DIS Emergency DONNA QUINTERO [employer] Via [facility] ER L FOOT SWELLING/BP ISSUES [id number] 06/06/2016 13:15:00 06/06/2016 16:50:00 DIS Emergency LYNDA CÁRDENAS Via [facility] ER LEFT KNEE PAIN/SWELLING [id number] 07/05/2014 22:31:00 07/06/2014 00:44:00 DIS Emergency ALEC OWENS DO Via [facility] ER HEADACHE,ELEVATED BLOOD PRESSURE [id number] 02/15/2014 15:33:00 02/15/2014 23:59:59 CLS Outpatient ELIZABETH RITTER APRN Via [facility] RAD SCREENING [id number] 06/02/2017 23:04:00 Document Registration
--- NOTE | 2017-06-04 07:01 | ED Lower Extremity ---
General Chief Complaint: Lower Extremity Stated Complaint: LEFT KNEE PAIN Nursing Triage Note: c/o L knee pain Nursing Sepsis Screen: No Definite Risk Source: patient History of Present Illness Time seen by provider: 06:36 Initial Comments PT ARRIVES VIA EMS FROM HOME C/O LEFT KNEE PAIN AND SWELLING--STATES SHE FELL "LAST NIGHT", BUT WAS PT ACTUALLY HERE 06/02/17 ( NOT LAST NIGHT) FOR FALL/SYNCOPAL EPISODE WITH VERTIGO --HAS CHRONIC VERTIGO. PT HAS SUTURES ABOVE LEFT BROW, CT SCAN OF HEAD WAS NORMAL AT THAT TIME PT DENIES ANY HEADACHE, NAUSEA/VOMITING OR DIZZINESS NO NECK OR BACK PAIN, BUT HAS CHRONIC LOWER BACK PAIN PT STATES SHE HAS CHRONIC PROBLEMS WITH LEFT KNEE SWELLING AND PAIN, BUT NEVER HAS HAD PAIN IN HER KNEE THIS BAD.. HAS CHRONIC PROBLEMS WITH BOTH KNEES--HAS NOT SOUGHT CARE FOR THAT PROBLEM WITH HER PCP OR WITH ORTHOPEDICS. NOT EXACTLY SURE HOW SHE INJURED HER KNEE. PT DID NOT COMPLAIN OF HER LEFT KNEE HURTING AT THE TIME OF PREVIOUS VISIT. NO PARESTHESIAS OR MOTOR DEFICITS HAS NOT TAKEN ANYTHING FOR PAIN AT ANY TIME--"DON'T HAVE ANYTHING" [facility] Allergies and Home Medications Allergies Coded Allergies: azithromycin (Verified Allergy, Unknown, 07/05/14) ciprofloxacin (Verified Allergy, Unknown, 07/05/14) moxifloxacin (Verified Allergy, Unknown, 07/05/14) Home Medications Hydrocodone/Ibuprofen 1 Each Tablet, 1-2 EACH PO Q4H, #20 Prescribed by: ANUJA DEVI on 06/04/17 0852 Lisinopril/Hydrochlorothiazide 1 Each Tablet, (Reported) Metoprolol Succinate 25 Mg Tab.er.24h, 25 MG PO HS, (Reported) Pantoprazole Sodium 40 Mg Tablet., (Reported) Constitutional: no symptoms reported EENTM: see HPI Respiratory: no symptoms reported Cardiovascular: no symptoms reported Gastrointestinal: no symptoms reported Genitourinary: no symptoms reported Musculoskeletal: see HPI Skin: no symptoms reported Psychiatric/Neurological: No Symptoms Reported Past Eeadbeb-Lfiyyo-Etxgnc Hx Patient Social History Alcohol Use: Occasionally Uses (HISTORY OF HEAVY USE) Number of Drinks Today: Alcohol Beverage of Choice: Wine Recreational Drug Use: No Smoking Status: Current Everyday Smoker Type Used: Cigarettes 2nd Hand Smoke Exposure: Yes Recent Foreign Travel: No Contact w/Someone Who Travel: No Recent Infectious Disease Expo: No Recent Hopitalizations: No Physical Abuse: No Sexual Abuse: No Immunizations Up To Date Tetanus Booster (TDap): Unknown Seasonal Allergies Seasonal Allergies: Yes Surgeries History of Surgeries: Yes Surgeries: Hysterectomy, Orthopedic Respiratory History of Respiratory Disorde: No Cardiovascular History of Cardiac Disorders: Yes Cardiac Disorders: Hypertension Neurological History of Neurological Disord: Yes Neurological Disorders: Vertigo Reproductive System Hx Reproductive Disorders: Yes (CERVICAL CANCER) 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, 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 Genitourinary History of Genitourinary Disor: No Gastrointestinal History of Gastrointestinal Di: Yes (HEPATITIS C) Gastrointestinal Disorders: Hepatitis Musculoskeletal History of Musculoskeletal Dis: Yes ("BAD KNEES"-FREQUENT SWELLING OF LEFT KNEE AND CHRONIC LEFT FOOT PAIN ) Musculoskeletal Disorders: Chronic Back Pain Endocrine History of Endocrine Disorders: No HEENT History of HEENT Disorders: No Cancer History of Cancer: Yes Cancer: Cervical Type of Tx Receive: Surgical Intervention Psychosocial History of Psychiatric Problem: Yes Behavioral Health Disorders: Anxiety Suicide Risk Score: 0 Integumentary History of Skin or Integumenta: No Blood Transfusions History of Blood Disorders: Yes (HEP C) Adverse Reaction to a Blood Tr: No Physical Exam Vital Signs Vital Sign - Last 12Hours 06/04/17 06/04/17 06:40 10:20 Temp 98.0 Pulse 96 Resp 18 B/P (MAP) 178/103 (128) Pulse Ox 99 O2 Delivery Room Air Capillary Refill : Less Than 3 Seconds General Appearance: WD/WN, no apparent distress, other (ON PHONE, ANXIOUS, WANTING MULTIPLE THINGS LITERALLY SHE IS ARRIVING --BLANKETS, SOMETHING TO DRINK, SOMETHING FOR PAIN, ETC. BUT ALSO ON THE PHONE SHE IS ARRIVING. VERY DRAMATIC, AND MARKEDLY EXAGGERATED PAIN RESPONSE. ) HEENT: PERRL/EOMI, other (SUTURES IN PLACE ABOVE LEFT BROW, WITH MILD LEFT PERIORBITAL BRUISING) Neck: non-tender, normal inspection Cardiovascular: normal peripheral pulses, regular rate, rhythm, no JVD, no murmur Respiratory: chest non-tender, normal breath sounds, no respiratory distress, no accessory muscle use Gastrointestinal: normal bowel sounds, non tender, soft Back: normal inspection, no CVA tenderness Hips: right hip normal inspection, left hip other (TENDERNESS TO LEFT HIP AND GROIN) Legs: left leg normal inspection Knees: right knee normal inspection, left knee bone tenderness, left knee joint effusion, left knee pain, left knee soft tissue tenderness, left knee swelling (MILD TO MODERATE SWELLING OF LEFT KNEE), left knee other (C/O SEVERE PAIN WITH SLIGHTEST MOVEMENT. LEFT KNEE WITH JACK WRAP IN PLACE. NO BRUISING OR DISCOLORATION OR ABRASION. 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, no motor/sensory deficits, alert, oriented x 3 Skin: normal color, warm/dry Splinting and Joint Reduction : Jack wrap: Yes Immobilizers: 24 inch Knee Ordered: Crutches Progress/Results/Core Measures Results/Orders My Orders Orders - ANUJA DEVI DO Knee, Left, 3 Views (06/04/17 06:54) Pelvis With Left Hip 2-3 Views (06/04/17 06:54) Ct Extremity Lower Left Wo (06/04/17 07:17) Ketorolac Injection (Toradol Injection) (06/04/17 07:30) Jack Bandage (06/04/17 08:51) Crutches (06/04/17 08:51) Knee Immobilizer (06/04/17 08:51) Hydrocodone/Apap 5/325 Tablet (Lortab 5 (06/04/17 09:00) Morphine Injection (Morphine Injection (06/04/17 09:13) Medications Given in ED Current Medications Medications Dose Ordered Sig/Torri Route Start Time Stop Time Status Last Admin Dose Admin Acetaminophen/ Hydrocodone Bitart 1 tab ONCE ONCE PO 06/04/17 09:00 06/04/17 09:01 DC 06/04/17 09:02 1 TAB Ketorolac Tromethamine 30 mg ONCE ONCE IVP 06/04/17 07:30 06/04/17 07:31 DC 06/04/17 07:24 30 MG Vital Signs/I&O Vital Sign - Last 12Hours 06/04/17 06/04/17 06:40 10:20 Temp 98.0 Pulse 96 85 Resp 18 18 B/P (MAP) 178/103 (128) Pulse Ox 99 98 O2 Delivery Room Air Blood Pressure Mean: 128 Progress Note : Progress Note PT STATES AT DISMISSAL THAT SHE HAS A WALKER AT HOME, BUT HAS NOT BEEN USING IT PT ALSO STATES THAT SHE HAS HAD CHRONIC LOWER BACK PAIN AND POSSIBLY WAS DX WITH COMPRESSION FRACTURE A LONG TIME AGO PT HAD A VERY PROTRACTED DISMISSAL, SHE WOULD NOT GET INTO WHEELCHAIR DUE TO PAIN, AND REFUSING TO GO HOME, BECAUSE SHE IS IN PAIN--PT GIVEN TORADOL, HYDROCODONE AND MORPHINE FOR PAIN PT RIPPED OFF KNEE IMMOBILIZER DURING DISMISSAL PROCESS PT'S DAUGHTER ARRIVED, AND LATER HER SON ARRIVED, PT WAS TRYING TO BE DISMISSED. PT SON BEING VERY DEMANDING, HOSTILE AND VERY ARGUMENTATIVE ABOUT ALL ASPECTS OF CARE. EXPLAINED TO HIM AT LENGTH THE TREATMENT AND PLAN OF CARE, AND THAT SHE WAS BEING REFERRED TO ORTHOPEDIC SURGEON FOR THIS PROBLEM, DR. MATTHEWS IS ORTHOPEDIC SURGEON CORPORATE LICENSED BROKER. SON STATES SOON HE ARRIVES THAT HE HAS ALREADY MADE AN APPOINTMENT FOR PT TOMORROW MORNING AT 0830 AT [facility] 4 STATES. PT EVENTUALLY STATES SHE WILL TRY TO GET INTO WHEELCHAIR AND WILL GO HOME. PHYSICAL THERAPY CONTACTED FOR WALKER AND ASSISTANCE WITH GETTING PT INTO WHEELCHAIR AND INTO VEHICLE Diagnostic Imaging Comments XRAYS LEFT KNEE--NO ACUTE BONY INJURY, BUT HAS SUPRAPATELLAR JOINT EFFUSION-- PER RADIOLOGIST REPORT @ 0811 XRAYS PELVIS AND LEFT HIP--L5 COMPRESSION, OTHERWISE NO ACUTE BONY INJURY--PER RADIOLOGIST REPORT @ 0840 CT LEFT KNEE--LARGE SUPRAPATELLAR JOINT EFFUSION, TRICOMPARTMENT DEGENERATIVE CHANGES, OLD AVULSIONS--PER RADIOLOGIST REPORT @ 0840 Reviewed: Reviewed by Me Departure Communication (PCP) 1000--SPOKE WITH DR. Hermelinda SHELTON, SHE WILL SEE PT IN OFFICE FOR FOLLOW UP. SHE WILL CALL BACK WITH APPOINTMENT DATE/TIME 1020--PT HAS APPOINTMENT WITH DR. SHELTON AT 2:00 PM ON 06/12/17 Impression Impression: Primary Impression: LEFT KNEE SPRAIN Additional Impressions: Effusion of left knee Compression fracture of L5 lumbar vertebra Disposition: HOME, SELF-CARE Condition: Stable Departure-Patient Inst. Ref[place] [facility] [place] Primary Care Physician JOANNE MATTHEWS MD Patient Instructions: Knee Sprain (DC), Ligament Injuries in the Knee (DC), Vertebral Compression Fracture (DC) Add. Discharge Instructions: JACK WRAP, KNEE IMMOBILIZER AND WALKER ICE TO AREA AT 20 MINUTE INTERVALS ELEVATE LEG MUCH POSSIBLE FOLLOW UP WITH DR. MATTHEWS OR ORTHOPEDIC SURGEON OF CHOICE THIS WEEK FOR FURTHER CARE FOLLOW UP WITH DR. Hermelinda SHELTON ON 06/12/17 AT 2:00 PM FOR FURTHER CARE All discharge instructions reviewed with patient and/or family. Voiced understanding. Scripts Hydrocodone/Ibuprofen (Hydrocodone-Ibuprofen 7.5-200) 1 Each Tablet 1-2 EACH PO Q4H for Pain, #20 TAB Prov: ANUJA DEVI DO 06/04/17 ANUJA DEVI DO Jun 04, 2017 07:01
[2017-06-04] MEDS ORDERED: KETOROLAC 30 MG/ML VIAL IVP ONE (07:30)
--- NOTE | 2017-06-04 08:00 | Diagnostic Imaging Report ---
INDICATION: Left knee pain. TECHNIQUE: 3 views of the left knee CORRELATION STUDY: None FINDINGS: There is mild joint space narrowing medially. The articular surfaces are smooth. There is no acute bony abnormality. Mild marginal osteophyte formation present. There is mild narrowing of the patellofemoral compartment. There is spurlike formation about the patella. There is presence of suprapatellar joint effusion. Calcified intra-articular loose body difficult to exclude. IMPRESSION: 1. No definite evidence for acute bony abnormality about the left knee. There is, however, rather prominent suprapatellar joint effusion. Dictated by: Dictated on workstation # [id number]
--- NOTE | 2017-06-04 08:19 | Diagnostic Imaging Report ---
INDICATION: Pain. Recent syncopal episode TECHNIQUE: AP pelvis along with 2 views left hip 7:25 AM CORRELATION STUDY: None FINDINGS: The pelvis demonstrates no evidence for acute fracture. The pectineal lines and obturator rings are maintained. Pubic symphysis and SI joints are unremarkable. Right hip appears unremarkable. There is what appears to be marked abnormal appearance about the lower lumbar spine. Compressed L5 vertebral body heights with disc space narrowing. Left hip with joint space narrowing. Femoral head acetabular relationship is otherwise maintained and unremarkable. Bony trabecular pattern intact. IMPRESSION: Negative for acute bony abnormality about the pelvis and/or left hip. Abnormal appearance about the visualized lower lumbar spine. If further assessment is desired, dedicated lumbar spine imaging recommended. Dictated by: Dictated on workstation # [id number]
--- NOTE | 2017-06-04 08:34 | Diagnostic Imaging Report ---
PROCEDURE: CT left lower extremity without contrast. TECHNIQUE: Multiple contiguous axial images were obtained through the left lower extremity without the use of intravenous contrast. Sagittal and coronal reformations were then performed. INDICATION: Left knee pain and swelling. FINDINGS: There is a large suprapatellar joint effusion. In the suprapatellar pouch, there is a curvilinear area of hyperdensity seen. There is also well-corticated ossified body measuring 9 x 3 mm seen along the lateral patellar fibular ligament area, probably sequela of an old injury. To be posterior to the quadriceps tendon and is probably sequela of prior injury. Near the insertion of the ACL, there is an ossification measuring 6 mm with well corticated margins. This might relate to an avulsion injury from the tibial insertion of the ACL, of indeterminate age. There is chondrocalcinosis seen involving the menisci medially and laterally. Prominent osteophytes in the three compartments are seen. There is subchondral sclerosis and the element of subchondral cysts as well in the three compartments. There is no subluxation or dislocation in the knee. There is no popliteal cyst. IMPRESSION: 1. Large joint effusion. 2. A focal 6 mm ossification near the tibial insertion of the ACL may relate to an avulsion injury of indeterminate age. 3. Ossifications adjacent to the patella and in the suprapatellar pouch is probably related to old trauma. 4. Tricompartment degenerative changes and chondrocalcinosis seen. Dictated by: Dictated on workstation # [id number]
[2017-06-04] MEDS ORDERED: HYDR-87 PO (08:52)
[2017-06-04] MEDS ORDERED: HYDROcodone/APAP 5 MG/325 MG (LORTAB) TAB PO ONE (09:00)
[2017-06-04] MEDS ORDERED: morphine INJ 10 MG/ML 1ML (SYR OR VIAL) IM STA (09:13)
[2017-06-04 10:20] VITALS: BP 174/85
== END 2017-06-04 10:09 | disposition home or self-care (01) ==
LOC: EDUNIT# 06:35 → ER 06:36
DX: S32.050A Wedge compression fracture of fifth lumbar vertebra, initial encounter for closed fracture (principal); S83.92XA Sprain of unspecified site of left knee, initial encounter; B19.20 Unspecified viral hepatitis C without hepatic coma; F41.9 Anxiety disorder, unspecified; F17.210 Nicotine dependence, cigarettes, uncomplicated; Z90.710 Acquired absence of both cervix and uterus; Z85.41 Personal history of malignant neoplasm of cervix uteri; W19.XXXA Unspecified fall, initial encounter
CPT/HCPCS: 73562; 73700; 99284

== ENCOUNTER → 2017-06-11 | Outpatient (CLI) | payer SELFPAY ==
[~2017-06-11] MED LIST changes: +HYDR-87 PO
--- NOTE | 2017-06-11 10:39 | Diagnostic Imaging Report ---
PROCEDURE: MRI left joint lower extremity without contrast. TECHNIQUE: Multiplanar, multisequence non contrast-enhanced MRI of the left lower extremity was accomplished. INDICATION: Chronic left knee pain. FINDINGS: The anterior cruciate and posterior cruciate ligaments are intact. Medial collateral ligaments intact. The biceps femoris, tibial collateral and iliotibial band are intact. There is no evidence of periligamentous inflammation or inflammatory change. The articular cartilage is relatively well maintained in both the medial and lateral knee joint compartments. There is however moderate chondromalacia patella. Degenerative narrowing of the patellofemoral joint with some marginal osteophytosis and subchondral edema along the anterior lateral aspect of the knee. There is a knee joint effusion. The quadriceps tendon and patellar tendons are intact. There are no other focal soft tissue abnormalities. Both the medial and lateral meniscus are normal in signal intensity and morphology. 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 Small knee joint effusion. No other internal derangement of the knee. Dictated by: Dictated on workstation # [id number]
== END ==
LOC: RAD 09:10
PROVIDERS: ATTEND Orthopaedic Surgery
DX: M17.12 Unilateral primary osteoarthritis, left knee (principal); M22.42 Chondromalacia patellae, left knee
CPT/HCPCS: 73721

== ENCOUNTER → 2017-08-05 | Outpatient (CLI) | payer SELFPAY ==
--- NOTE | 2017-08-05 17:18 | Diagnostic Imaging Report ---
PROCEDURE: US Thyroid. TECHNIQUE: Multiple real-time grayscale images were obtained of the thyroid in various projections. INDICATION: Lump in the left neck. FINDINGS: The right lobe of the thyroid measures 4.3 x 1.9 x 1.8 cm and the left lobe measures 4.0 x 1.0 x 1.2 cm. The left lobe of the thyroid demonstrates homogeneous echotexture and is without evidence of a discrete mass. There is an ill-defined hypoechoic mass in the lower pole of the right lobe of the thyroid with a cystic component measuring 1.9 x 1.1 x 1.1 cm. No associated microcalcifications are present. No other thyroid masses are detected. Imaging of the area of palpable abnormality in the left neck was performed. No underlying abnormality is seen. IMPRESSION: 1. No sonographic abnormality is identified to account for the patient's palpable abnormality in the left neck. Close clinical follow-up is recommended. Consideration could be given to performance of a CT of the neck with contrast for better characterization. 2. Ill-defined hypoechoic mixed solid and cystic mass involving the lower pole of the right lobe of the thyroid. Fine-needle aspiration is recommended. Dictated by: Dictated on workstation # [id number]
== END ==
LOC: RAD 12:39
PROVIDERS: ATTEND Pediatrics
DX: E04.1 Nontoxic single thyroid nodule (principal)
CPT/HCPCS: 76536

== ENCOUNTER → 2017-08-29 | Outpatient (CLI) | payer SELFPAY ==
[~2017-08-29] VITALS: Ht 157.5 cm; Wt 65.3 kg
[~2017-08-29] MED LIST changes: +CATHETER FLUSH 10 ML SYR IV PRN; +IOHEXOL 350 MG/ML 100 ML (OMNIPAQUE 350) VIAL IV ONE; +LIDOCAINE 1% INJ 20 ML (XYLOCAINE) VIAL INJ ONE; +LIDOCAINE 1% INJ 50 ML (XYLOCAINE) VIAL ONE; +NS 250 ML (IVPB) BAG IV ONE; +RECEIVED CONTRAST (Hold Metformin) IV SCH
[2017-08-29 11:42] LABS: BUN/CREATININE RATIO 14; CREATININE SERUM 0.77 MG/DL (0.60-1.30); GFR ESTIMATED > 60
[2017-08-29 12:47] VITALS: BP 134/80
[2017-08-29 13:40] VITALS: BP 124/71
--- NOTE | 2017-08-29 13:53 | Diagnostic Imaging Report ---
PROCEDURE: CT neck soft tissue with and without contrast. TECHNIQUE: Helically acquired axial images were obtained through the neck both before and after the administration of intravenous contrast. INDICATION: Palpable lump in the left neck. Patient had a recent abnormal thyroid ultrasound showing no abnormality on the left but a mixed solid and cystic nodule in lower pole right lobe of the thyroid. The study is performed for further evaluation. Correlation is made with thyroid ultrasound from 08/05/2017. FINDINGS: A BB marker was placed at the area of palpable abnormality in the left neck. This is at the level of the thyroid cartilage. The BB overlies the sternocleidomastoid muscle. The jugular vein is somewhat prominent just deep to the muscle. No soft tissue mass or fluid collection is identified. The submandibular glands are symmetric bilaterally. Bilateral parotid glands are symmetric and unremarkable. The posterior nasopharynx, oropharynx and hypopharynx are unremarkable. There is a mass along the lower pole of the right lobe of the thyroid gland, corresponding to the ultrasound abnormality. This measures 12 mm x 14 mm. This is along the posterior aspect of the right lobe and may represent either an exophytic thyroid nodule versus a parathyroid nodule. The nodule does have a cystic component along the inferior aspect. The nodule appears to be isodense to the adjacent thyroid tissue on the precontrast and postcontrast images. The left lobe of the thyroid is unremarkable. No cervical lymphadenopathy is detected. IMPRESSION: 1. No CT abnormality is identified in the left neck to account for the patient's palpable abnormality. 2. Mass noted along the lower pole right lobe of the thyroid, either representing an exophytic thyroid nodule or a parathyroid nodule. Fine-needle aspiration will be performed today. No other significant abnormality is seen. Dictated by: Dictated on workstation # [id number]
--- NOTE | 2017-08-29 17:03 | Diagnostic Imaging Report ---
INDICATION: Patient presents for ultrasound-guided fine-needle aspiration. PROCEDURE: Patient was brought to the procedure room and placed on the table in the supine position. Ultrasound imaging over the neck was performed to evaluate appropriate entry site. The skin of the right neck was prepped and draped in usual sterile fashion. Small amount of 1% lidocaine was utilized for local anesthesia. Multiple passes were made into the mixed solid and cystic mass located along the lower pole of the right lobe of the thyroid with 25-gauge needles. Attempts were made to aspirate the cystic component however no significant fluid could be obtained. The needle was withdrawn and hemostasis was obtained using manual compression. The patient tolerated the procedure well and left the department in stable condition. IMPRESSION: Successful ultrasound-guided fine-needle aspiration of a mixed solid and cystic mass along the lower pole of the right lobe of the thyroid. The pathology results are currently pending. Dictated by: Dictated on workstation # [id number]
== END ==
LOC: RAD 10:52
PROVIDERS: ATTEND Pediatrics
DX: E04.1 Nontoxic single thyroid nodule (principal)
CPT/HCPCS: 36415; 70492; 76942; 82565; 84520

== ENCOUNTER 2019-03-17 17:20 | Emergency (ER) | payer SELFPAY ==
[~2019-03-17] VITALS: Ht 157 cm; Wt 63.6 kg
[~2019-03-17 17:20] MED LIST changes: -CATHETER FLUSH 10 ML SYR IV PRN; -IOHEXOL 350 MG/ML 100 ML (OMNIPAQUE 350) VIAL IV ONE; -LIDOCAINE 1% INJ 20 ML (XYLOCAINE) VIAL INJ ONE; -LIDOCAINE 1% INJ 50 ML (XYLOCAINE) VIAL ONE; -NS 250 ML (IVPB) BAG IV ONE; -RECEIVED CONTRAST (Hold Metformin) IV SCH
[2019-03-17] MEDS ORDERED: KETOROLAC 30 MG/ML VIAL IVP ONE (17:45)
--- NOTE | 2019-03-17 17:54 | ED Integumentary General ---
General Chief Complaint: Skin/Wound Problems Stated Complaint: RASH Nursing Triage Note: ARRUVED VIA AMB TO TRIAGE. 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 STATES HER RIGHT FOOT IS RED, OOZING, AND PAINFUL ET THINKS IT IS INFECTED. LEFT FOOT HAS IT ALSO BUT NOT BAD. STATES SHE IS HAVING TROUBLE WALKING DUE TO IT. Source: patient Exam Limitations: no limitations (MILLIE MILTON) History of Present Illness Date Seen by Provider: Mar 17, 2019 Time Seen by Provider: 17:33 Initial Comments Patient presents to ER by private conveyance with chief complaint of painful red rash on the bottoms of both feet right worse than left. Mild swelling. She also has a rash on her back that was described as pityriasis. She was told that the rash on her feet was fungal so she's been using Vicks and topical antifungal creams unsuccessfully for the past 3 months. Today it is painful to walk on them. Last night she used apple cider baths followed by hydroperoxide foot bath and since then it has been very painful. The skin is cracked but not draining anything. She's not had any fever chills nausea vomiting. She is not diabetic nor does she have any anti-immunologic's or immunocompromise. (MILLIE MILTON) Allergies and Home Medications Allergies Coded Allergies: azithromycin (Verified Allergy, Unknown, 07/05/14) ciprofloxacin (Verified Allergy, Unknown, 07/05/14) moxifloxacin (Verified Allergy, Unknown, 07/05/14) Home Medications Hydrocodone/Ibuprofen 1 Each Tablet, 1-2 EACH PO Q4H Prescribed by: ANUJA DEVI on 06/04/17 0852 Ketoconazole 15 Gm Cream..g., 15 GM TP BID Prescribed by: ANUJA DEVI on 03/17/19 183 Metoprolol Succinate 25 Mg Tab.er.24h, 25 MG PO HS, (Reported) Tramadol HCl 50 Mg Tablet, 50 MG PO Q4H PRN for PAIN-MODERATE Prescribed by: ANUJA DEVI on 03/17/191831 Patient Home Medication List Home Medication List Reviewed: Yes (MILLIE MILTON) Review of Systems Review of Systems Constitutional: No chills, No diaphoresis EENTM: No ear discharge, No ear pain Respiratory: No cough, No short of breath Cardiovascular: No chest pain, No edema Gastrointestinal: No abdominal pain, No nausea (MILLIE MILTON) Past Gqsxfyf-Cbgknm-Iowuzp Hx Patient Social History Alcohol Use: Occasionally Uses Alcohol Beverage of Choice: Wine Recreational Drug Use: No Smoking Status: Current Everyday Smoker Type Used: Cigarettes 2nd Hand Smoke Exposure: Yes Recent Foreign Travel: No Contact w/Someone Who Travel: No Recent Infectious Disease Expo: No Recent Hopitalizations: No (MILLIE MILTON) Immunizations Up To Date Tetanus Booster (TDap): Unknown (MILLIE MILTON) Seasonal Allergies Seasonal Allergies: Yes (MILLIE MILTON) Past Medical History Surgeries: Yes Hysterectomy, Orthopedic Respiratory: No Cardiac: Yes Hypertension Neurological: Yes Vertigo Reproductive Disorders: 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 (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 CANCER) 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, 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 Genitourinary: No Gastrointestinal: Yes (HEPATITIS C) Hepatitis Musculoskeletal: Yes ("BAD KNEES"-FREQUENT SWELLING OF LEFT KNEE AND CHRONIC LEFT FOOT PAIN ) Chronic Back Pain Endocrine: No HEENT: No Cancer: Yes Cervical What Type of Treatment Did You: Surgical Intervention Psychosocial: Yes Anxiety Integumentary: Yes Recent Skin Changes Blood Disorders: Yes (HEP C) Adverse Reaction/Blood Tranf: No (MILLIE MILTON) Physical Exam Vital Signs Vital Signs - First Documented 03/17/19 17:25 Temp 36.9 Pulse 76 Resp 18 B/P (MAP) 135/70 (91) Pulse Ox 99 O2 Delivery Room Air (VARGHESE,ANUJA K DO) Vital Signs Capillary Refill : Less Than 3 Seconds (MILLIE MILTON) General Appearance: WD/WN, mild distress HEENT: PERRL/EOMI, pharynx normal Neck: full range of motion, normal inspection Cardiovascular: normal peripheral pulses, regular rate, rhythm Respiratory: no respiratory distress, no accessory muscle use Neurologic/Psychiatric: no motor/sensory deficits, alert, normal mood/affect, oriented x 3 Skin: rash (MILLIE MILTON) Progress/Results/Core Measures Results/Orders Lab Results Laboratory Tests Test 03/17/19 17:43 Range/Units White Blood Count 9.0 4.3-11.0 10^3/uL Red Blood Count 4.38 4.35-5.85 10^6/uL Hemoglobin 14.2 11.5-16.0 G/DL Hematocrit 41 35-52 % Mean Corpuscular Volume 93 80-99 FL Mean Corpuscular Hemoglobin 32 25-34 PG Mean Corpuscular Hemoglobin Concent 35 32-36 G/DL Red Cell Distribution Width 13.0 10.0-14.5 % Platelet Count 321 130-400 10^3/uL Mean Platelet Volume 9.7 7.4-10.4 FL Neutrophils (%) (Auto) 67 42-75 % Lymphocytes (%) (Auto) 20 12-44 % Monocytes (%) (Auto) 8 0-12 % Eosinophils (%) (Auto) 4 0-10 % Basophils (%) (Auto) 1 0-10 % Neutrophils # (Auto) 6.1 1.8-7.8 X 10^3 Lymphocytes # (Auto) 1.8 1.0-4.0 X 10^3 Monocytes # (Auto) 0.7 0.0-1.0 X 10^3 Eosinophils # (Auto) 0.4 H 0.0-0.3 10^3/uL Basophils # (Auto) 0.1 0.0-0.1 10^3/uL Sodium Level 138 135-145 MMOL/L Potassium Level 4.1 3.6-5.0 MMOL/L Chloride Level 104 98-107 MMOL/L Carbon Dioxide Level 21 21-32 MMOL/L Anion Gap 13 5-14 MMOL/L Blood Urea Nitrogen 12 7-18 MG/DL Creatinine 1.02 0.60-1.30 MG/DL Estimat Glomerular Filtration Rate 55 BUN/Creatinine Ratio 12 Glucose Level 94 70-105 MG/DL Calcium Level 9.6 8.5-10.1 MG/DL Corrected Calcium 9.3 8.5-10.1 MG/DL Total Bilirubin 0.2 0.1-1.0 MG/DL Aspartate Amino Transf (AST/SGOT) 21 5-34 U/L Alanine Aminotransferase (ALT/SGPT) 19 0-55 U/L Alkaline Phosphatase 84 40-136 U/L C-Reactive Protein High Sensitivity 0.33 0.00-0.50 MG/DL Total Protein 7.9 6.4-8.2 GM/DL Albumin 4.4 3.2-4.5 GM/DL (VARGHESE,ANUJA K DO) Medications Given in ED Current Medications Medications Dose Ordered Sig/Torri Route Start Time Stop Time Status Last Admin Dose Admin Ketorolac Tromethamine 30 mg ONCE ONCE IVP 03/17/19 17:45 03/17/19 17:48 DC 03/17/19 17:58 30 MG (ANUJA DEVI DO) Vital Signs/I&O 03/17/19 17:25 Temp 36.9 Pulse 76 Resp 18 B/P (MAP) 135/70 (91) Pulse Ox 99 O2 Delivery Room Air (ANUJA DEVI DO) Blood Pressure Mean: 91 Progress Progress Note : Progress Note 1800-ASSUMED CARE FROM DR. MILTON, LAB PENDING DISCUSSED TEST RESULTS WITH PT PT STATES SHE HAS BEEN ON THE FLUCONAZOLE LESS THAN A WEEK STATES SHE HAS BEEN USING KETOCONAZOLE ON HER RASH ON HER BACK AND ARMS AND IT HELPS, HAS NOT BEEN USING IT ON HER FEET--HAS BEEN PUTTING VICKS ON HER FEET, IN ADDITION TO SOAKING IN APPLE CIDER VINEGAR AND ALSO HYDROGEN PEROXIDE. ALSO GIVE STORY OF NOT HAVING INSOLES IN HER SHOES, AND NOT WEARING SOCKS, AND HAS BEEN USING "MAXI PADS" IN HER SHOES INSTEAD ADVISED PT TO STOP USING VICKS OR SOAKING HER FEET IN ANY THING EXCEPT PRESCRIBE D MEDICATION, AND MAY SOAK IN WARM EPSOM SALTS. SHE STATES THAT WHEN SHE WAS ON STEROIDS, HER FEET GOT MUCH WORSE. (ANUJA DEVI DO) Transfer of Care Time: 17:59 Care transferred to: Varg[place]se (MILLIE MILTON) Departure Impression Primary Impression: Dermatitis of both feet Additional Impression: non specific rash on body Disposition: 01 HOME, SELF-CARE Condition: Stable Departure-Patient Inst. Referrals: [facility] (PCP/Family) Primary Care Physician NITA FINCH MD Patient Instructions: Skin Rash (DC) Add. Discharge Instructions: DO NOT USE ANYTHING ON FEET EXCEPT PRESCRIBED MEDICATION MAY SOAK IN WARM EPSOM SALTS NEEDED CONTINUE FLUCONAZOLE FOLLOW UP WITH DR. FINCH, GLOVE [employer], SOON POSSIBLE--CALL IN AM FOR APPOINTMENT All discharge instructions reviewed with patient and/or family. Voiced understanding. Scripts Tramadol HCl (Ultram) 50 Mg Tablet 50 MG PO Q4H PRN for PAIN-MODERATE for 3 Days, TAB Prov: ANUJA DEVI DO 03/17/19 Ketoconazole (Ketoconazole) 15 Gm Cream..g. 15 GM TP BID, #1 TUBE Prov: ANUJA DEVI DO 03/17/19 MILLIE MILTON Mar 17, 2019 17:54 ANUJA DEVI DO Mar 17, 2019 18:31
[2019-03-17 18:03] LABS: BASOPHILS # (AUTO) 0.1 10^3/uL (0.0-0.1); BASOPHILS % (AUTO) 1 % (0-10); EOSINOPHILS # (AUTO) 0.4 10^3/uL (0.0-0.3); EOSINOPHILS % (AUTO) 4 % (0-10); HEMATOCRIT 41 % (35-52); HEMOGLOBIN 14.2 G/DL (11.5-16.0); LYMPHOCYTES # (AUTO) 1.8 X 10^3 (1.0-4.0); LYMPHOCYTES % (AUTO) 20 % (12-44); MEAN CORPUSCULAR HEMOGLOBIN 32 PG (25-34); MEAN CORPUSCULAR HGB CONC 35 G/DL (32-36); MEAN CORPUSCULAR VOLUME 93 FL (80-99); MEAN PLATELET VOLUME 9.7 FL (7.4-10.4); MONOCYTES # (AUTO) 0.7 X 10^3 (0.0-1.0); MONOCYTES % (AUTO) 8 % (0-12); NEUTROPHILS # (AUTO) 6.1 X 10^3 (1.8-7.8); NEUTROPHILS % (AUTO) 67 % (42-75); PLATELET COUNT 321 10^3/uL (130-400)
[2019-03-17 18:16] LABS: ALBUMIN 4.4 GM/DL (3.2-4.5); BILIRUBIN,TOTAL 0.2 MG/DL (0.1-1.0); CALCIUM 9.6 MG/DL (8.5-10.1); CREATININE SERUM 1.02 MG/DL (0.60-1.30); POTASSIUM 4.1 MMOL/L (3.6-5.0); TOTAL PROTEIN 7.9 GM/DL (6.4-8.2)
[2019-03-17] MEDS ORDERED: TRAM-42 PO (18:32)
[2019-03-17] MEDS ORDERED: KETO15CR2 TP (18:32)
[2019-03-17 18:40] VITALS: BP 130/69
== END 2019-03-17 18:40 | disposition home or self-care (01) ==
LOC: EDUNIT# 17:20 → ER 17:21
DX: L30.9 Dermatitis, unspecified (principal); I10 Essential (primary) hypertension; B19.20 Unspecified viral hepatitis C without hepatic coma; F41.9 Anxiety disorder, unspecified; F17.210 Nicotine dependence, cigarettes, uncomplicated; Z85.41 Personal history of malignant neoplasm of cervix uteri; Z88.1 Allergy status to other antibiotic agents; Z90.710 Acquired absence of both cervix and uterus
CPT/HCPCS: 36415; 80053; 85025; 86141; 87220; 96374

== ENCOUNTER → 2020-07-15 | Outpatient (CLI) | payer OTHER ==
[~2020-07-15] MED LIST changes: +KETO15CR2 TP; -LISI1TAB10; +LISI1TAB26; -PANT40TA3; +PANT40TA52; +TRAM-42 PO
[2020-07-15 18:06] LABS: BASOPHILS # (AUTO) 0.1 10^3/uL (0.0-0.1); BASOPHILS % (AUTO) 1 % (0-10); EOSINOPHILS # (AUTO) 0.3 10^3/uL (0.0-0.3); EOSINOPHILS % (AUTO) 4 % (0-10); HEMATOCRIT 37 % (35-52); HEMOGLOBIN 12.3 g/dL (11.5-16.0); LYMPHOCYTES # (AUTO) 2.5 10^3/uL (1.0-4.0); LYMPHOCYTES % (AUTO) 30 % (12-44); MEAN CORPUSCULAR HEMOGLOBIN 31 pg (25-34); MEAN CORPUSCULAR HGB CONC 33 g/dL (32-36); MEAN CORPUSCULAR VOLUME 94 fL (80-99); MEAN PLATELET VOLUME 9.8 fL (9.0-12.2); MONOCYTES # (AUTO) 0.7 10^3/uL (0.0-1.0); MONOCYTES % (AUTO) 9 % (0-12); NEUTROPHILS # (AUTO) 4.6 10^3/uL (1.8-7.8); NEUTROPHILS % (AUTO) 56 % (42-75); PLATELET COUNT 264 10^3/uL (130-400); WHITE BLOOD COUNT 8.1 10^3/uL (4.3-11.0)
[2020-07-15 18:17] LABS: ALBUMIN 4.4 GM/DL (3.2-4.5); CHLORIDE 106 MMOL/L (98-107); POTASSIUM 4.1 MMOL/L (3.6-5.0); SODIUM 139 MMOL/L (135-145)
[2020-07-15 18:18] LABS: CALCIUM 9.2 MG/DL (8.5-10.1)
[2020-07-15 18:19] LABS: GLUCOSE 101 MG/DL (70-105)
[2020-07-15 18:21] LABS: BILIRUBIN,TOTAL 0.2 MG/DL (0.1-1.0); CARBON DIOXIDE 21 MMOL/L (21-32)
[2020-07-15 18:23] LABS: ALKALINE PHOSPHATASE 70 U/L (40-136); CREATININE SERUM 0.89 MG/DL (0.60-1.30); GFR ESTIMATED > 60
[2020-07-15 18:24] LABS: BUN/CREATININE RATIO 20
[2020-07-15 18:26] LABS: ALANINE AMINOTRANSFERASE 12 U/L (0-55)
== END ==
LOC: LAB 17:54
PROVIDERS: ATTEND Nurse Practitioner Family
DX: L03.031 Cellulitis of right toe (principal)
CPT/HCPCS: 36415; 80053; 85025; 86141

== ENCOUNTER 2021-06-12 05:42 | Outpatient (CLI) | payer OTHER ==
[~2021-06-12] VITALS: Ht 157.5 cm; Wt 56.3 kg
[~2021-06-12 05:42] MED LIST changes: -LISI1TAB26; +LISI1TAB48; -LISI40TA; +LISI40TA9
[2021-06-12] MEDS ORDERED: AMIT50TA3 PO (12:04)
[2021-06-12] MEDS ORDERED: ROSU20TA32 PO (12:08)
[2021-06-12] MEDS ORDERED: TR1O15 TP (12:08)
[2021-06-12] MEDS ORDERED: CLOP75TA28 PO (12:08)
[2021-06-12] MEDS ORDERED: METO50TA7 PO (12:08)
[2021-06-12] MEDS ORDERED: AMLO-251 PO (12:08)
== END 2021-06-12 15:54 | disposition home or self-care (01) ==
LOC: PREOP 05:42
PROVIDERS: ATTEND Surgery
DX: Z01.818 Encounter for other preprocedural examination (principal)

== ENCOUNTER 2022-07-15 14:45 | Emergency (ER) | payer MEDICARE, OTHER ==
[~2022-07-15] VITALS: Ht 157 cm; Wt 55.5 kg
[~2022-07-15 14:45] MED LIST changes: +AMLO-251 PO; +CLOP75TA28 PO; +HYDR-4085 PO; -HYDR-87 PO; +METO50TA7 PO; +ROSU20TA32 PO; +TR1O15 TP
[2022-07-15 16:09] LABS: BASOPHILS # (AUTO) 0.1 10^3/uL (0.0-0.1); BASOPHILS % (AUTO) 1 % (0-10); EOSINOPHILS # (AUTO) 0.1 10^3/uL (0.0-0.3); EOSINOPHILS % (AUTO) 1 % (0-10); HEMATOCRIT 35 % (35-52); HEMOGLOBIN 12.2 g/dL (11.5-16.0); LYMPHOCYTES # (AUTO) 1.5 10^3/uL (1.0-4.0); LYMPHOCYTES % (AUTO) 13 % (12-44); MEAN CORPUSCULAR HEMOGLOBIN 33 pg (25-34); MEAN CORPUSCULAR HGB CONC 35 g/dL (32-36); MEAN CORPUSCULAR VOLUME 95 fL (80-99); MEAN PLATELET VOLUME 9.7 fL (9.0-12.2); MONOCYTES # (AUTO) 0.7 10^3/uL (0.0-1.0); MONOCYTES % (AUTO) 6 % (0-12); NEUTROPHILS # (AUTO) 9.3 10^3/uL (1.8-7.8); NEUTROPHILS % (AUTO) 80 % (42-75); PLATELET COUNT 307 10^3/uL (130-400); WHITE BLOOD COUNT 11.7 10^3/uL (4.3-11.0)
--- NOTE | 2022-07-15 16:11 | ED Cardiac General ---
History of Present Illness General Chief Complaint: Chest Pain Stated Complaint: CHEST TIGHTNESS AND ARM NUMBNESS FOR 2 WEEKS Nursing Triage Note: PT STATES DX WITH ABS ABOUT A MONTH AGO, CC OF PAIN IN BOTH ARMS AND SHOULDERS FOR A BOUT 2 WEEKS, TIGHTNESS IN CHEST, "FEELS LIKE AN ANXIETY ATTACK," MOTHER OF A SILENT HEART ATTACK SO WORRIED ABOUT THAT, FATHER HAD CABG,HAS BEEN REACHING BEHIND HER AND MAY CAUSE THE SHOULDER ISSUE, IS DISABLED AND CAUSES STRESS ALSO. "FEELS HEART BEATING IN STOMACH." DID HAVE PART OF AN ENERGY DRINK TODAY AND A LIQUID IV. Source: patient Exam Limitations: no limitations History of Present Illness Date Seen by Provider: Jul 15, 2022 Time Seen by Provider: 15:33 Initial Comments 67-year-old female presents to the ED with complaints of bilateral shoulder pain and intermittent chest tightness. States she has had this shoulder pain for the last 2 weeks. She reports that the pain in her shoulders sometimes radiates down to her wrist with tingling in her fingers. States she had a "weird feeling in her chest," 2 weeks ago. Stated today she had 2-3 episodes of chest tightness, states this episode occurred at 12:30 PM. States the pain feels like she just needed to take a deep breath. States she did drink an energy drink prior to this. Patient states her mother of a silent [place], and patient is worried about this. States that her mother had a lot of belching before she passed. She is complaining of a lot of belching also, but states that she has IBS and was recently put on MiraLAX. She is also a smoker, smokes about 1 PPD on and off since she was 19. She also has peripheral artery disease, has had a toe removed due to this, and a balloon in the right femoral artery, unsure if they placed a stent. She also has hypertension and eczema. Currently takes MiraLAX, amlodipine, lisinopril, metoprolol, Plavix, rosuvastatin, Protonix. She denies fevers, shortness of air. Reports cough, but states that is due to her smoking, denies any change in her cough. She reports abdominal pain, but states this is related to her IBS. Allergies and Home Medications Allergies Coded Allergies: azithromycin (Verified Allergy, Unknown, 07/05/14) ciprofloxacin (Verified Allergy, Unknown, 07/05/14) moxifloxacin (Verified Allergy, Unknown, 07/05/14) Patient Home Medication List Home Medication List Reviewed: Yes Amitriptyline HCl (Amitriptyline HCl) 50 Mg Tablet, 50 MG PO DAILY, (Reported) Entered as Reported by: ARLEN SEYMOUR on 06/12/21 1204 Amlodipine Besylate (Amlodipine Besylate) 10 Mg Tablet, 10 MG PO DAILY, (Reported) Entered as Reported by: ARLEN SEYMOUR on 06/12/21 1208 Clopidogrel Bisulfate (Clopidogrel) 75 Mg Tablet, 75 MG PO DAILY, (Reported) Entered as Reported by: ARLEN SEYMOUR on 06/12/21 1208 Hydrocodone/Ibuprofen (Hydrocodone-Ibuprofen 7.5-200) 1 Each Tablet, 1-2 EACH PO Q4H Prescribed by: ANUJA DEVI on 06/04/17 0852 Ketoconazole (Ketoconazole) 15 Gm Cream..g., 15 GM TP BID Prescribed by: ANUJA DEVI on 03/17/19 183 Lisinopril/Hydrochlorothiazide (Lisinopril-Hctz 20-25 mg Tab) 1 Each Tablet, (Reported) Entered as Reported by: BERENICE BRIDGES on 06/02/172152 Metoprolol Succinate (Toprol Xl) 25 Mg Tab.er.24h, 25 MG PO HS, (Reported) Entered as Reported by: ALEJA JOE on 06/06/16 1350 Metoprolol Succinate (Metoprolol Succinate) 50 Mg Tab.er.24h, 50 MG PO DAILY, (Reported) Entered as Reported by: ARLEN SEYMOUR on 06/12/21 120 Pantoprazole Sodium (Pantoprazole Sodium) 40 Mg Tablet.dr, (Reported) Entered as Reported by: BERENICE BRIDGES on 06/02/172152 Rosuvastatin Calcium (Rosuvastatin Calcium) 20 Mg Tablet, 20 MG PO HS, (Reported) Entered as Reported by: ARLEN SEYMOUR on 06/12/21 120 Tramadol HCl (Ultram) 50 Mg Tablet, 50 MG PO Q4H PRN for PAIN-MODERATE Prescribed by: ANUJA DEVI on 03/17/19 183 Triamcinolone Acet (Triamcinolone Acetonide 0.1% Ointment) 15 Gm Oint, 15 GM TP PRN, (Reported) Entered as Reported by: ARLEN SEYMOUR on 06/12/21 1688 Review of Systems Review of Systems Constitutional: see HPI Past Zoikdci-Zvikgc-Rclrnw Hx Patient Social History Tobacco Use?: Yes Tobacco type used: Cigarettes Smoking Status: Current Everyday Smoker Substance use?: No Alcohol Use?: No Immunizations Up To Date Tetanus Booster (TDap): Unknown First/Initial COVID19 Vaccinat: 07-05-2020 Second COVID19 Vaccination Brayan: 08-21-2020 Third COVID19 Vaccination Date: 04-19-21 COVID19 Vaccine [employer]: [employer] Seasonal Allergies Seasonal Allergies: Yes Past Medical History Surgery/Hospitalization HX: PAD, "BALLONED" RT THIGH, HYPERTENSION, PARTIAL HYST, RT TOE REMOVED Surgeries: Yes Amputation Respiratory: No Cardiac: Yes Deep Vein Thrombosis, Hypertension Neurological: No Vertigo 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 0.0oz. [id number]; 22.00 BMI Method:Stated General Appearance: WD/WN, Anxious Neck: Normal Inspection, Supple Respiratory: Lungs Clear, Normal Breath Sounds, No Accessory Muscle Use, No Respiratory Distress Cardiovascular: Regular Rate, Rhythm, No Edema, No Gallop, No JVD, No Murmur Gastrointestinal: Normal Bowel Sounds, No Pulsatile Mass Neurologic/Psychiatric: Alert, Oriented x3, Normal Mood/Affect (Anxious) Skin: Normal Color, Warm/Dry Progress/Results/Core Measures Results/Orders Lab Results Laboratory Tests Test 07/15/22 15:50 Range/Units White Blood Count 11.7 H 4.3-11.0 10^3/uL Red Blood Count 3.65 L 3.80-5.11 10^6/uL Hemoglobin 12.2 11.5-16.0 g/dL Hematocrit 35 35-52 % Mean Corpuscular Volume 95 80-99 fL Mean Corpuscular Hemoglobin 33 25-34 pg Mean Corpuscular Hemoglobin Concent 35 32-36 g/dL Red Cell Distribution Width 12.2 10.0-14.5 % Platelet Count 307 130-400 10^3/uL Mean Platelet Volume 9.7 9.0-12.2 fL Immature Granulocyte % (Auto) 0 % Neutrophils (%) (Auto) 80 H 42-75 % Lymphocytes (%) (Auto) 13 12-44 % Monocytes (%) (Auto) 6 0-12 % Eosinophils (%) (Auto) 1 0-10 % Basophils (%) (Auto) 1 0-10 % Neutrophils # (Auto) 9.3 H 1.8-7.8 10^3/uL Lymphocytes # (Auto) 1.5 1.0-4.0 10^3/uL Monocytes # (Auto) 0.7 0.0-1.0 10^3/uL Eosinophils # (Auto) 0.1 0.0-0.3 10^3/uL Basophils # (Auto) 0.1 0.0-0.1 10^3/uL Immature Granulocyte # (Auto) 0.0 0.0-0.1 10^3/uL Prothrombin Time 14.1 12.2-14.7 SEC INR Comment 1.0 0.8-1.4 Activated Partial Thromboplast Time 25 24-35 SEC Sodium Level 139 135-145 MMOL/L Potassium Level 4.5 3.6-5.0 MMOL/L Chloride Level 108 H 98-107 MMOL/L Carbon Dioxide Level 20 L 21-32 MMOL/L Anion Gap 11 5-14 MMOL/L Blood Urea Nitrogen 17 7-18 MG/DL Creatinine 1.06 0.60-1.30 MG/DL Estimat Glomerular Filtration Rate 58 BUN/Creatinine Ratio 16 Glucose Level 114 H 70-105 MG/DL Calcium Level 8.7 8.5-10.1 MG/DL Corrected Calcium 8.6 8.5-10.1 MG/DL Magnesium Level 1.8 1.6-2.4 MG/DL Total Bilirubin 0.2 0.1-1.0 MG/DL Aspartate Amino Transf (AST/SGOT) 24 5-34 U/L Alanine Aminotransferase (ALT/SGPT) 23 0-55 U/L Alkaline Phosphatase 62 40-136 U/L Myoglobin 34.2 10.0-92.0 NG/ML Troponin I < 0.028 <0.028 NG/ML Total Protein 7.2 6.4-8.2 GM/DL Albumin 4.1 3.2-4.5 GM/DL My Orders Orders - SARTHAK BURTON [employer] SALESP[employer] Ekg Tracing (07/15/22 15:33) Cbc With Automated Diff (07/15/22 16:03) Magnesium (07/15/22 16:03) Chest 1 View, Ap/Pa Only (07/15/22 16:03) Comprehensive Metabolic Panel (07/15/22 16:03) Myoglobin Serum (07/15/22 16:03) Protime With Inr (07/15/22 16:03) Partial Thromboplastin Time (07/15/22 16:03) Monitor-Rhythm Ecg Trace Only (07/15/22 16:03) Ed Iv/Invasive Line Start (07/15/22 16:03) Troponin I Jenna (07/15/22 16:03) Vital Signs/I&O 07/15/22 07/15/22 15:29 16:59 Temp 36.3 36.3 Pulse 81 72 Resp 20 20 B/P (MAP) 147/79 (101) 126/88 Pulse Ox 100 100 O2 Delivery Room Air Room Air Blood Pressure Mean: 101 Progress Progress Note : Time: 16:14 Progress Note Patient seen and evaluated, resting comfortably in bed, mildly anxious. Based on exam and symptoms, differential diagnosis includes but is not limited to musculoskeletal pain, [place], anxiety. Work-up initiated including CBC, CMP, troponin, myoglobin, magnesium, chest x-ray, EKG. Initial ECG Impression Date: Jul 15, 2022 Initial ECG Impression Time: 15:57 Initial ECG Rate: 79 Initial ECG Rhythm: Normal Sinus Initial ECG Intervals: Normal Initial ECG Impression: Normal Initial ECG Comparisson: No Previous ECG Available Departure Impression Primary Impression: Chest pain Additional Impression: Shoulder pain Disposition: 01 HOME, SELF-CARE Condition: Stable Departure-Patient Inst. Decision time for Depature: 16:51 [facility]: [facility] (PCP[facility]Family) Primary Care Physician Patient Instructions: Chest Pain That Is Not Caused by the Heart (DC) Add. Discharge Instructions: You may take Aleve with food as needed for pain. Follow-up with your primary care provider. Return for uncontrolled chest pain, shortness of breath, lightheadedness, feeling faint, nausea/vomiting, or any other new, concerning, or worsening symptoms. All discharge instructions reviewed with patient and/or family. Voiced understanding. SARTHAK BURTON APRN Jul 15, 2022 16:11
[2022-07-15 16:16] LABS: ALBUMIN 4.1 GM/DL (3.2-4.5)
[2022-07-15 16:17] LABS: POTASSIUM 4.5 MMOL/L (3.6-5.0); PROTHROMBIN TIME PATIENT 14.1 SEC (12.2-14.7)
[2022-07-15 16:18] LABS: CALCIUM 8.7 MG/DL (8.5-10.1)
[2022-07-15 16:19] LABS: TOTAL PROTEIN 7.2 GM/DL (6.4-8.2)
[2022-07-15 16:21] LABS: BILIRUBIN,TOTAL 0.2 MG/DL (0.1-1.0)
[2022-07-15 16:23] LABS: CREATININE SERUM 1.06 MG/DL (0.60-1.30)
[2022-07-15 16:26] LABS: MAGNESIUM 1.8 MG/DL (1.6-2.4)
--- NOTE | 2022-07-15 16:31 | Diagnostic Imaging Report ---
CLINICAL INDICATION: Patient with chest tightness. EXAM: Portable chest x-ray upright view. COMPARISON: Chest x-ray dated 05/29/2017. FINDINGS: Lungs/pleura: Lungs are clear. There is no pneumothorax. There is no pleural effusion. Mediastinum: Unremarkable. Pulmonary vasculature: Unremarkable. Heart: Unremarkable. Bones/extrathoracic soft tissue: There are degenerative spurs involving the spine. There is right curvature of the thoracic spine. IMPRESSION: There is no radiographic evidence of acute cardiopulmonary process. Dictated by: Dictated on workstation # [id number]
[2022-07-15 16:59] VITALS: BP 126/88
== END 2022-07-15 16:58 | disposition home or self-care (01) ==
LOC: EDUNIT# 14:45 → ER 14:48
DX: R07.89 Other chest pain (principal); M25.511 Pain in right shoulder; M25.512 Pain in left shoulder; F17.210 Nicotine dependence, cigarettes, uncomplicated; K58.9 Irritable bowel syndrome, unspecified; I10 Essential (primary) hypertension; L30.9 Dermatitis, unspecified; Z79.02 Long term (current) use of antithrombotics/antiplatelets; Z79.899 Other long term (current) drug therapy
CPT/HCPCS: 36415; 71045; 80053; 83735; 83874; 84484; 85025; 85610; 85730; 93005; 93041

== ENCOUNTER → 2022-08-08 | Outpatient (CLI) | payer MEDICARE, OTHER ==
--- NOTE | 2022-08-08 14:43 | Diagnostic Imaging Report ---
EXAMINATION: CT chest without contrast (lung screening). TECHNIQUE: Multiple contiguous axial images were obtained through the chest without the use of intravenous contrast according to lung cancer screening protocol. All CT scans use one or more of the following dose optimizing techniques: automated exposure control, MA and/or KvP adjustment based on patient size and exam type or iterative reconstruction. HISTORY: 45 pack year history of smoking. COMPARISON: None available. FINDINGS: There is no edema or pneumonia. No pleural effusion. No pneumothorax. No suspicious nodules. There is no axillary or supraclavicular lymphadenopathy. There is no mediastinal lymphadenopathy. Heart size is normal. There are mild coronary artery calcifications. No pericardial effusion. Aorta is normal in caliber. Limited views of the upper abdomen are unremarkable. There are no suspicious osseus lesions. IMPRESSION: 1. No suspicious pulmonary nodules. LUNG-RADS CATEGORY: 1 MODIFIER: None. Dictated by: Dictated on workstation # [id number]
== END ==
LOC: RAD 13:17
PROVIDERS: ATTEND Pediatrics
DX: Z12.2 Encounter for screening for malignant neoplasm of respiratory organs (principal); F17.210 Nicotine dependence, cigarettes, uncomplicated
CPT/HCPCS: 71271